=== PATIENT | male | born 1970 ===

== ENCOUNTER 2020-07-14 14:52 | Outpatient (REF) | payer OTHER, SELFPAY ==
--- NOTE | 2020-07-14 | MR_ITS ---
EXAMINATION: MR LUMBAR SPINE WITHOUT CONTRAST CLINICAL INFORMATION: Indeterminate and lumbar right-sided radiculopathy. Foot numbness. COMPARISON: Lumbar spine radiographs from 12/16/2017. TECHNIQUE: MRI of the lumbar spine was obtained using routine sequences without contrast. FINDINGS: Minimal degenerative retrolisthesis of L5 on S1. Otherwise, normal anatomic alignment. Mild to moderate degenerative disc disease from T11-L2 and L4-S1 with partial loss of disc height and desiccation. Mild mixed Modic type discogenic endplate changes, including minimal Modic type I discogenic edema at L1-L2, L2-L3, and L4-L5. No additional suspicious marrow edema. Small Schmorl's nodes at L1-L2, L3-L4, and L4-L5. Otherwise, the vertebral body heights are largely maintained. The conus medullaris terminates at the level of L1. The distal spinal cord is normal in appearance. No significant abnormalities of the paraspinal musculature. Limited evaluation of the intra-abdominal structures without significant abnormalities. The abdominal aorta is of normal contour and caliber. AXIAL SPINAL LEVELS: T10-T11: This level is not included on axial imaging. There appears to be mild right subarticular protrusion. No evidence of overt spinal canal stenosis. T11-T12: This level is not included on axial imaging. There appears to be mild right subarticular disc protrusion. No evidence of overt spinal canal stenosis. T12-L1: Mild diffuse disc bulge. There is moderate right and mild left facet joint arthropathy. There is no neural foraminal stenosis. There is no spinal canal stenosis. L1-L2: Mild diffuse disc bulge. There is moderate bilateral facet joint arthropathy. There is no neural foraminal stenosis. There is no spinal canal stenosis. L2-L3: Mild diffuse disc bulge. There is moderate bilateral facet joint arthropathy. There is mild right and no left neural foraminal stenosis. There is mild narrowing of the right lateral recess with no overt spinal canal stenosis centrally. L3-L4: Moderate diffuse disc bulge with superimposed left greater than right foraminal/extraforaminal disc protrusion. There is moderate bilateral facet joint arthropathy. There is moderate bilateral neural foraminal stenosis. The protruded disc material abuts the left greater than right exited L3 nerve roots. There is mild spinal canal stenosis. L4-L5: Moderate diffuse disc bulge with superimposed right foraminal protrusion. There is moderate left and mild right facet joint arthropathy. There is moderate right and mild left neural foraminal stenosis. There is narrowing of the right lateral recess with mild spinal canal stenosis centrally. L5-S1: Prominent central disc extrusion. There is moderate bilateral facet joint arthropathy. There is moderate to neural foraminal stenosis. There is stenosis of the right greater than left lateral recesses with moderate spinal canal stenosis centrally. MR/MR lumbar spine wo con IMPRESSION: 1. There is a prominent disc extrusion at L5-S1 that exerts mass effect on the right greater than left traversing S1 nerve roots. There is also moderate spinal canal stenosis centrally and moderate bilateral neural foraminal stenoses at this level. 2. Otherwise, moderate multilevel degenerative spinal arthropathy of the lumbar spine as described in detail above. There are mild spinal canal stenoses at L3-L4 and L4-L5. Moderate neural foraminal narrowings from L3-L5.
== END 2020-07-14 14:53 | disposition home or self-care (01) ==
LOC: HO.MRI 14:52
PROVIDERS: PCP Physician Assistant; Visit Provider Physician Assistant
DX: M54.16 Radiculopathy, lumbar region (principal)
CPT/HCPCS: 72148

== ENCOUNTER 2020-12-08 07:31 | Outpatient (REF) | payer OTHER, SELFPAY ==
[2020-12-08 08:27] LABS: MANUAL DIFF FLAG NO
[2020-12-08 08:32] LABS: Basophils Percent Auto 0.8 % (0-2); Eosinophils Absolute Auto 0.2 X10*3/uL (0.0-0.4); Eosinophils Percent Auto 2.9 % (0-4); Hematocrit 41.8 % (42-52); Hemoglobin 14.2 g/dl (14.0-18.0); Imm Gran Abs Auto 0.02 X10*3/uL (0.00-0.03); Imm Gran Pct Auto 0.4 % (0.0-0.4); Lymphocytes Absolute Auto 2.3 X10*3/uL (1.2-4.9); Lymphocytes Percent Auto 44.2 % (20-40); Mean Corpuscular Hemoglobin 29.3 pg (27.0-33.0); Mean Corpuscular Volume 86.2 fL (80-98); Mean Platelet Volume 9.3 fL (9.4-12.4); Monocytes Absolute Auto 0.5 X10*3/uL (0.1-1.2); Monocytes Percent Auto 9.1 % (2-11); Neutrophils Absolute Auto 2.2 X10*3/uL (2.0-8.3); Neutrophils Percent Auto 42.6 % (45-73); Platelet Count 331 X10*3/uL (160-400); Red Blood Count 4.85 X10*6/uL (4.60-5.80); Red Cell Distribution Width 12.4 % (11.0-16.0); White Blood Count 5.3 X10*3/uL (4.8-10.8)
[2020-12-08 08:59] LABS: Alanine Aminotransferase 41 U/L (0-40); Albumin Level 4.9 g/dL (3.5-5.0); Alkaline Phosphatase 93 U/L (39-117); Anion Gap 19 (12-20); Aspartate Amino Transferase 34 U/L (5-37); Bilirubin Total 0.6 mg/dL (0.0-1.0); Blood Urea Nitrogen 12 mg/dL (9-16); Calcium 9.9 mg/dL (8.4-10.2); Carbon Dioxide 23 mmol/L (22-29); Chloride 100 mmol/L (96-108); Cholesterol 195 mg/dL; Estimated Glomerular Filt Rate > 60; Glucose Fasting 130 mg/dL (60-99); HDL Cholesterol 40 mg/dL; LDL Cholesterol Calculated 102 mg/dl; Potassium 3.9 mmol/L (3.3-5.1); Sodium 138 mmol/L (135-145); Total Protein 7.8 g/dL (6.5-8.0); Triglycerides 269 mg/dL
[2020-12-08 09:24] LABS: Prostate Specific Antigen 1.05 ng/mL (<0.05-4.0); Thyroid Stimulating Hormone 1.63 uIU/mL (0.32-4.0)
[2020-12-08 14:24] LABS: Creatinine Urine 37.73 mg/dL
== END 2020-12-08 07:32 | disposition home or self-care (01) ==
LOC: HO.LAB 07:31
PROVIDERS: PCP Physician Assistant; Visit Provider Physician Assistant
DX: Z12.5 Encounter for screening for malignant neoplasm of prostate (principal); E11.9 Type 2 diabetes mellitus without complications; E78.5 Hyperlipidemia, unspecified; I10 Essential (primary) hypertension
CPT/HCPCS: 36415; 80053; 80061; 82043; 84153; 84443; 85025

== ENCOUNTER → 2021-03-28 14:15 | Outpatient (BNVA) | payer OTHER, SELFPAY | PROVIDERS: PCP Physician Assistant; Referring Provider Physician Assistant; Visit Provider Physician Assistant ==

== ENCOUNTER 2021-05-30 09:16 | Outpatient (REF) | payer OTHER, SELFPAY ==
--- NOTE | ~2021-05-30 | XR_ITS ---
EXAMINATION: XR CHEST CLINICAL INFORMATION: COVID 19. COMPARISON: None. TECHNIQUE: 2 views of the chest were obtained. FINDINGS: Minimal right middle lobe atelectasis versus early infiltrate. No additional airspace consolidation. No pleural effusion or pneumothorax. Unremarkable cardiomediastinal silhouette. No acute osseous abnormality. XR/XR chest 2V IMPRESSION: Minimal right middle lobe atelectasis versus early infiltrate.
== END 2021-05-30 09:17 | disposition home or self-care (01) ==
LOC: HO.LAB 09:16
PROVIDERS: PCP Physician Assistant; Visit Provider Physician Assistant
DX: U07.1 COVID-19 (principal)
CPT/HCPCS: 71046; U0003; U0005

== ENCOUNTER 2021-07-26 06:00 | Outpatient (REF) | payer OTHER, SELFPAY ==
[2021-07-26 07:38] LABS: Hematocrit 45.5 % (42.0-52.0); Hemoglobin 14.8 g/dl (14.0-18.0); Mean Corpuscular HGB Conc 32.5 g/dl (31.0-36.0); Mean Corpuscular Hemoglobin 28.6 pg (27.0-33.0); Mean Platelet Volume 9.6 fL (9.4-12.4); Platelet Count 379 X10*3/uL (160-400); Red Blood Count 5.17 X10*6/uL (4.60-5.80); Red Cell Distribution Width 13.1 % (11.0-16.0); White Blood Count 5.9 X10*3/uL (4.8-10.8)
[2021-07-26 08:41] LABS: TSH reflex Free T4 1.71 uIU/mL (0.32-4.0)
[2021-07-26 08:44] LABS: Alanine Aminotransferase 29 U/L (0-40); Albumin Level 4.7 g/dL (3.5-5.0); Alkaline Phosphatase 95 U/L (39-117); Anion Gap 16 (12-20); Aspartate Amino Transferase 27 U/L (5-37); Bilirubin Total 0.6 mg/dL (0.0-1.0); Blood Urea Nitrogen 20 mg/dL (9-16); Calcium 10.9 mg/dL (8.4-10.2); Carbon Dioxide 26 mmol/L (22-29); Chloride 100 mmol/L (96-108); Cholesterol 192 mg/dL; Estimated Glomerular Filt Rate > 60; Glucose Fasting 148 mg/dL (60-99); HDL Cholesterol 39 mg/dL; LDL Cholesterol Calculated 93 mg/dl; Potassium 4.4 mmol/L (3.3-5.1); Sodium 138 mmol/L (135-145); Total Protein 7.9 g/dL (6.5-8.0); Triglycerides 303 mg/dL
[2021-07-26 08:51] LABS: Estimated Average Glucose 177 mg/dL; Hemoglobin A1c % 7.8 %
== END 2021-07-26 06:01 | disposition home or self-care (01) ==
LOC: HO.LAB 06:00
PROVIDERS: PCP Physician Assistant; Visit Provider Physician Assistant
DX: E11.9 Type 2 diabetes mellitus without complications (principal); I10 Essential (primary) hypertension
CPT/HCPCS: 36415; 80053; 80061; 83036; 84443; 85027

== ENCOUNTER 2022-04-04 09:45 | Emergency (ER) | payer OTHER, SELFPAY ==
--- NOTE | ~2022-04-04 | CT_ITS ---
EXAMINATION: CT ABDOMEN AND PELVIS WITHOUT CONTRAST CLINICAL INFORMATION: Sudden onset right lower quadrant pain. Evaluate for appendicitis. COMPARISON: Radiographs of lumbosacral spine from 12/16/2017. TECHNIQUE: Multidetector volumetric imaging was performed from the superior aspect of the liver through the pubic symphysis. Sagittal and coronal reformatted images were obtained on the technologist's workstation. This CT examination was performed using dose optimization techniques as appropriate, variously including the following: *Automated exposure control *Adjustment of mA and/or kV according to patient size (this includes techniques or standardized protocols for targeted exams where dose is matched to indication/reason for exam; i.e. extremities or head) *Use of iterative reconstruction technique DLP: 639 mGy-cm FINDINGS: LUNG BASES: Normal. No pulmonary consolidation or pleural effusion at either lung base. LIVER: Liver has a few small simple cysts. 0.3 cm calcification in the lateral right hepatic lobe. No suspicious liver lesion. GALLBLADDER AND BILIARY TREE: Gallbladder is without radiopaque stones, wall thickening or pericholecystic fluid. No dilated bile ducts. PANCREAS: Normal. No edema, pancreatic ductal dilatation or mass. SPLEEN: Normal. ADRENAL GLANDS: Normal. KIDNEYS AND URETERS: Kidneys have normal size, cortical thickness and attenuation. Mild right perinephric and proximal periureteral edema, and mild hydronephrosis, are caused by a 0.3 cm stone at the L4-L5 level of the mid ureter. Otherwise, kidneys and ureters are unremarkable. BLADDER: Suboptimally evaluated due to lack of distention. No bladder calculi. BOWEL AND PERITONEUM: Stomach is unremarkable. No dilated loops of bowel. The appendix is normal. Diverticula of descending colon without diverticulitis. No overt bowel wall thickening or mesenteric fat stranding. No ascites or pneumoperitoneum. ABDOMINAL WALL: Unremarkable. VASCULATURE: Unremarkable. LYMPH NODES: No pathologic sized lymph nodes in the abdomen or pelvis. No inguinal lymphadenopathy. PELVIC VISCERA: Unremarkable. SKELETAL: Mild multilevel discovertebral degenerative change of the spine. Bone island of right subcapital femoral neck and left pubic bone. Mild osteoarthrosis of the hips and sacroiliac joints. There appears to be minimal trabecular thickening and sclerosis of the posterior right iliac bone projecting lateral to the right sacroiliac joint which is intact. This could represent chronic mild osteitis or perhaps mild stress-related change. This asymmetric sclerosis adjacent to the sacroiliac joint is also visible on radiographs from 12/16/2017. No evidence of an aggressive appearing bone lesion. No follow-up necessary. CT/CT abdomen pelvis wo con IMPRESSION: * Acute mild right hydronephrosis and perinephric edema are caused by a 0.3 cm stone of the mid ureter. * Diverticulosis of the descending colon without diverticulitis.
[2022-04-04 09:47] VITALS: BP 178/107; PULSE 97; RESP 18; TEMP 37.1; O2SAT 98; BMI 33.4
--- NOTE | 2022-04-04 09:51 | ECG_ITS ---
Test Reason : WEAK Blood Pressure : / mmHG Vent. Rate : 071 BPM Atrial Rate : 071 BPM P-R Int : 126 ms QRS Dur : 090 ms QT Int : 406 ms P-R-T Axes : 053 006 034 degrees QTc Int : 441 ms Sinus rhythm with Premature ventricular complexes or Fusion complexes Otherwise normal ECG No previous ECGs available Referred By: Mary Ann Woo Electronically Signed By:Patrick Gaspar
[2022-04-04 13:46] LABS: Alanine Aminotransferase 21 U/L (0-40); Albumin Level 4.5 g/dL (3.5-5.0); Alkaline Phosphatase 99 U/L (39-117); Anion Gap 15 (12-20); Aspartate Amino Transferase 27 U/L (5-37); Bilirubin Direct 0.2 mg/dL (0.0-0.5); Bilirubin Total 0.6 mg/dL (0.0-1.0); Blood Urea Nitrogen 17 mg/dL (9-16); Calcium 9.6 mg/dL (8.4-10.2); Carbon Dioxide 24 mmol/L (22-29); Chloride 103 mmol/L (96-108); Creatinine Clr Calc Pharmacy 81.3; Estimated Glomerular Filt Rate > 60; Glucose Random 177 mg/dL (60-115); Lipase 15 U/L (8-78); Magnesium 2.1 mg/dL (1.6-2.6); Potassium 4.7 mmol/L (3.3-5.1); Sodium 137 mmol/L (135-145); Total Protein 7.6 g/dL (6.5-8.0)
--- NOTE | 2022-04-04 16:01 | ED_ITS ---
HPI - Abdominal Pain General Chief Complaint: Abdominal Pain Stated Complaint: right side pain Time Seen by Provider: 04/04/22 09:49 Source: patient Mode of arrival: ambulatory Limitations: no limitations History of Present Illness HPI narrative: 52-year-old male presents with sudden onset of right sharp lower quadrant pain. While patient was experiences pain he did have some dizziness and diaphoresis. Patient does not have a prior cardiac history, does have diabetes, hypertension, hyperlipidemia, and a family history of coronary artery disease. He has not experienced pain like this in the past, and does not report any significant changed pain with position or exertion. He does not report chest pain or pressure, palpitations, shortness of breath, pain on inspiration, abdominal distention, dysuria, hematuria, edema, nausea, vomiting, diarrhea, fevers or chills. MD elicited complaint: abdominal pain and flank pain Pertinent past history: none Onset (ago): day(s) Pain Consistency: colicky Location: RLQ and R flank Severity: moderate Pain scale (0-10): 6 Quality: stabbing and aching Radiation: none Migration to: no migration Exacerbating factors: nothing Relieving factors: nothing Associated symptoms: other (Dizziness and diaphoresis) Related Data Home Medications Medication Instructions Recorded Confirmed loratadine 10 mg tablet 10 mg PO DAILY 01/25/21 07/31/21 Previous Rx's Medication Instructions Recorded albuterol sulfate 90 mcg/actuation 1 inh inhalation QID 30 days #8.5 01/25/21 aerosol inhaler (ProAir HFA) grams atorvastatin 80 mg tablet 80 mg PO DAILY 90 days #90 tabs 01/25/21 lisinopril 20 2 tab PO DAILY 90 days #180 tabs 01/25/21 mg-hydrochlorothiazide 12.5 mg tablet mupirocin 2 % topical ointment 1 appl topical BID 10 days #22 01/25/21 grams trazodone 100 mg tablet 50 mg PO BEDTIME 90 days #45 tabs 01/25/21 glyburide 2.5 mg tablet 2.5 mg PO DAILY 60 days #60 tabs 03/21/21 bisacodyl 5 mg tablet,delayed 10 mg PO ONCE colonoscopy prep 1 03/28/21 release (Dulcolax (bisacodyl)) day #2 tabs polyethylene glycol 3350 17 238 g PO ONCE 1 day #238 grams 03/28/21 gram/dose oral powder (Miralax) canagliflozin 150 mg-metformin 1 tab PO BID 90 days #180 tabs 07/31/21 1,000 mg tablet (Invokamet) cyclobenzaprine 10 mg tablet 10 mg PO BEDTIME 20 days #20 tabs 07/31/21 dulaglutide 0.75 mg/0.5 mL 0.75 mg (0.5 mL) subcut QWEEK 4 07/31/21 subcutaneous pen injector weeks #2 mL (Trulicity) fluticasone propionate 50 1 spray intranasal BID 30 days #16 07/31/21 mcg/actuation nasal grams spray,suspension oxybutynin chloride 10 mg 10 mg PO DAILY 30 days #30 tabs 07/31/21 tablet,extended release 24 hr tadalafil 20 mg tablet 20 mg PO DAILY 5 days #5 tabs 07/31/21 tamsulosin 0.4 mg capsule (Flomax) 0.4 mg PO DAILY 21 days #21 caps 04/04/22 Allergies Allergy/AdvReac Type Severity Reaction Status Date / Time No Known Allergies Allergy Verified 07/31/21 08:29 Review of Systems Review of Systems Constitutional: No Fever, No Chills ENT/Mouth: No Ear Pain, No Hoarseness, No sore throat Eyes: No Eye Pain, No Swelling, No Redness, No Foreign Body Cardiovascular: No Chest Pain, No SOB Respiratory: No Cough, No Dyspnea Gastrointestinal: No Nausea, No Vomiting, No Diarrhea, positive abdominal Pain, positive right flank pain Genitourinary: No Dysuria, No Hematuria Musculoskeletal: No joint pain, No Myalgias, No Joint Swelling Skin: No Skin lacerations, No rash Neuro: No Weakness, No Numbness, No Paresthesias, No Loss of Consciousness, positive Dizziness, No Headache Psych: No Anxiety/Panic, No Depression Heme/Lymph: no easy bruising, no Lymphadenopathy Endocrine: No Polyuria, No Polydipsia Yes all other systems are reviewed and are negative FOR[facility]LY [facility] Past Medical History Attestation statement: The following information was validated with the patient. 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 Oriented X3. No acute distress. Eyes: Pupils equal, round and reactive to light. ENT: Pharynx normal. Neck: Normal inspection. Neck supple. CVS: Normal heart rate and rhythm. Pulses normal. Respiratory: No respiratory distress. Breath sounds normal. Abdomen: Soft and nontender. Right CVA tenderness noted. Skin: Skin warm and dry. Normal skin color. Normal skin turgor. Extremities: No lower extremity edema. Gait well-balanced and well coordinated Neuro: No motor deficit. No sensory deficit. Cranial nerves 2-12 intact. Course Course Course Narrative: 52-year-old male presents for a sudden onset of sharp right lower quadrant abdominal pain accompanied with diaphoresis and dizziness. No prior history of kidney stones, AAA history, or ACS. Labs drawn while patient was in the emergency department waiting room. CBC is unremarkable, chemistries show and mildly elevated BUN of 17, glucose of 177 patient is a diabetic, no symptoms of hyperglycemia or DKA, 16:01 review of labs and CT indicates right-sided hydronephrosis with perinephric edema, kidney stone. Will order urinalysis to rule out pyelo. 16:37 urinalysis positive for heme, no nitrites leukocyte esterase white blood cells or bacteria noted. Plan of care is to treat for kidney stone and have patient follow-up with Urology next week. 18:59 2nd troponin 21.9, no acute findings. Trops could be elevated secondary to diabetes. Low likelihood of ACS at this time. Patient verbalized understanding of and agrees plan of care discharge home. Verbalized understanding of signs symptoms indicating need for emergent intervention. MDM - Abdominal Pain Differential Diagnosis Differential diagnosis: Likely abdominal pain, acute appendicitis, calculus of kidney, diverticulitis, mesenteric ischemia and small bowel obstruction Medical Records Attestation: I reviewed the patient's medical records. Lab Data Attestation: I reviewed the patient's lab results. Result diagrams: 04/04/22 16:15 04/04/22 13:09 Labs: Lab Results 04/04/22 04/04/22 04/04/22 Range/Units 13:09 16:04 16:15 WBC 6.7 (4.8-10.8) X10*3/uL RBC 4.89 (4.60-5.80) X10*6/uL Hgb 14.0 (14.0-18.0) g/dl Hct 41.8 L (42.0-52.0) % MCV 85.5 (80.0-98.0) fL MCH 28.6 (27.0-33.0) pg MCHC 33.5 (31.0-36.0) g/dl RDW 12.7 (11.0-16.0) % Plt Count 305 (160-400) X10*3/uL MPV 8.9 L (9.4-12.4) fL Immature Gran % (Auto) 0.3 (0.0-0.4) % Neut % (Auto) 59.0 (45-73) % Lymph % (Auto) 30.4 (20-40) % [place] % (Auto) 9.1 (2-11) % Eos % (Auto) 0.6 (0-4) % Baso % (Auto) 0.6 (0-2) % Lymph # (Auto) 2.0 (1.2-4.9) X10*3/uL [place] # (Auto) 0.6 (0.1-1.2) X10*3/uL Eos # (Auto) 0.0 (0.0-0.4) X10*3/uL Baso # (Auto) 0.0 (0.0-0.2) X10*3/uL Abs Immat Gran (auto) 0.02 (0.00-0.03) X10*3/uL Absolute Neuts (auto) 4.0 (2.0-8.3) x10*3/uL Absolute Nucleated RBC 0.000 (0.0-0.012) X10*3/uL Nucleated RBC % (auto) 0.0 (0.0-0.2) /100WBC Sodium 137 (135-145) mmol/L Potassium 4.7 (3.3-5.1) mmol/L Chloride 103 (96-108) mmol/L Carbon Dioxide 24 (22-29) mmol/L Anion Gap 15 (12-20) BUN 17 H (9-16) mg/dL Creatinine 1.23 (0.5-1.4) mg/dL Estim Creat Clear Calc 81.3 Estimated GFR > 60 Random Glucose 177 H (60-115) mg/dL Calcium 9.6 D (8.4-10.2) mg/dL Magnesium 2.1 (1.6-2.6) mg/dL Total Bilirubin 0.6 (0.0-1.0) mg/dL Direct Bilirubin 0.2 (0.0-0.5) mg/dL AST 27 (5-37) U/L ALT 21 (0-40) U/L Alkaline Phosphatase 99 (39-117) U/L Troponin I High Sens (<3.5-35.0) ng/L Total Protein 7.6 (6.5-8.0) g/dL Albumin 4.5 (3.5-5.0) g/dL Lipase 15 (8-78) U/L Urine Color YELLOW Urine Appearance CLEAR Urine pH 5.5 (5.0-8.0) Ur Specific [place] >= 1.030 H (1.005-1.025) Urine Protein 2+ H (NEG-TRACE) MG/DL Urine Glucose (UA) NEG (NEG) MG/DL Urine Ketones NEG (NEG) MG/DL Urine Blood 3+ H (NEG) Urine Nitrite NEG (NEG) Ur Leukocyte Esterase NEG (NEG) Urine RBC 30-49 H (0) /HPF Urine WBC 0 (0-4) /HPF Ur Squamous Epith Cells 1+ /LPF Urine Bacteria NONE /LPF 04/04/22 04/04/22 Range/Units 16:46 18:24 WBC (4.8-10.8) X10*3/uL RBC (4.60-5.80) X10*6/uL Hgb (14.0-18.0) g/dl Hct (42.0-52.0) % MCV (80.0-98.0) fL MCH (27.0-33.0) pg MCHC (31.0-36.0) g/dl RDW (11.0-16.0) % Plt Count (160-400) X10*3/uL MPV (9.4-12.4) fL Immature Gran % (Auto) (0.0-0.4) % Neut % (Auto) (45-73) % Lymph % (Auto) (20-40) % [place] % (Auto) (2-11) % Eos % (Auto) (0-4) % Baso % (Auto) (0-2) % Lymph # (Auto) (1.2-4.9) X10*3/uL [place] # (Auto) (0.1-1.2) X10*3/uL Eos # (Auto) (0.0-0.4) X10*3/uL Baso # (Auto) (0.0-0.2) X10*3/uL Abs Immat Gran (auto) (0.00-0.03) X10*3/uL Absolute Neuts (auto) (2.0-8.3) x10*3/uL Absolute Nucleated RBC (0.0-0.012) X10*3/uL Nucleated RBC % (auto) (0.0-0.2) /100WBC Sodium (135-145) mmol/L Potassium (3.3-5.1) mmol/L Chloride (96-108) mmol/L Carbon Dioxide (22-29) mmol/L Anion Gap (12-20) BUN (9-16) mg/dL Creatinine (0.5-1.4) mg/dL Estim Creat Clear Calc Estimated GFR Random Glucose (60-115) mg/dL Calcium (8.4-10.2) mg/dL Magnesium (1.6-2.6) mg/dL Total Bilirubin (0.0-1.0) mg/dL Direct Bilirubin (0.0-0.5) mg/dL AST (5-37) U/L ALT (0-40) U/L Alkaline Phosphatase (39-117) U/L Troponin I High Sens 20.0 21.9 (<3.5-35.0) ng/L Total Protein (6.5-8.0) g/dL Albumin (3.5-5.0) g/dL Lipase (8-78) U/L Urine Color Urine Appearance Urine pH (5.0-8.0) Ur Specific [place] (1.005-1.025) Urine Protein (NEG-TRACE) MG/DL Urine Glucose (UA) (NEG) MG/DL Urine Ketones (NEG) MG/DL Urine Blood (NEG) Urine Nitrite (NEG) Ur Leukocyte Esterase (NEG) Urine RBC (0) /HPF Urine WBC (0-4) /HPF Ur Squamous Epith Cells /LPF Urine Bacteria /LPF Imaging Data CT scan - abdomen: Attestation: I personally reviewed and interpreted this imaging study as follows: Radiologist's impression: FINDINGS: LUNG BASES: Normal. No pulmonary consolidation or pleural effusion at either lung base.? LIVER: Liver has a few small simple cysts. 0.3 cm calcification in the lateral right hepatic lobe. No suspicious liver lesion. GALLBLADDER AND BILIARY TREE: Gallbladder is without radiopaque stones, wall thickening or pericholecystic fluid.? No dilated bile ducts. PANCREAS: Normal. No edema, pancreatic ductal dilatation or mass.? SPLEEN: Normal.? ADRENAL GLANDS: Normal.? KIDNEYS AND URETERS: Kidneys have normal size, cortical thickness and attenuation. Mild right perinephric and proximal periureteral edema, and mild hydronephrosis, are caused by a 0.3 cm stone at the L4-L5 level of the mid ureter. Otherwise, kidneys and ureters are unremarkable. BLADDER:? Suboptimally evaluated due to lack of distention. No bladder calculi. BOWEL AND PERITONEUM: Stomach is unremarkable. No dilated loops of bowel. The appendix is normal. Diverticula of descending colon without diverticulitis. No overt bowel wall thickening or mesenteric fat stranding. No ascites or pneumoperitoneum. ABDOMINAL WALL: Unremarkable.? VASCULATURE: Unremarkable. LYMPH NODES: No pathologic sized lymph nodes in the abdomen or pelvis. No inguinal lymphadenopathy. PELVIC VISCERA: Unremarkable. SKELETAL: Mild multilevel discovertebral degenerative change of the spine. Bone island of right subcapital femoral neck and left pubic bone. Mild osteoarthrosis of the hips and sacroiliac joints. There appears to be minimal trabecular thickening and sclerosis of the posterior right iliac bone projecting lateral to the right sacroiliac joint which is intact. This could represent chronic mild osteitis or perhaps mild stress-related change. This asymmetric sclerosis adjacent to the sacroiliac joint is also visible on radiographs from 12/16/2017. No evidence of an aggressive appearing bone lesion. No follow-up necessary. CT/CT abdomen pelvis wo con IMPRESSION: *? Acute mild right hydronephrosis and perinephric edema are caused by a 0.3 cm stone of the mid ureter. *? Diverticulosis of the descending colon without diverticulitis. ? ECG Data Attestation: I personally reviewed and interpreted this ECG as follows: ECG interpretation date: 04/04/22 ECG interpretation time: 16:09 Prior ECG tracings: not available for review Interpretation: Ventricular rate 71 beats per minute, GA 126, QRS 90, QTC 406, QTC 441, sinus rhythm with PVCs or fusion complexes. No indication of ST elevation or d epression. Scores Heart Score History: -1- moderately suspicious ECG: -0- normal Age: -1- >45 - <65 Risk factory: -1- 1 or 2 risk factors Troponin: -0- < or = normal limit Score: 3 Risk: 1.7% Discharge Plan Discharge Clinical Impression: Kidney stone, Hydronephrosis Patient Disposition: Home, Self-Care Instructions: Kidney Stones (ED), Hydronephrosis (ED) Additional Instructions: You were evaluated for right lower quadrant abdominal pain. CT scan of abdomen pelvis indicates a right-sided kidney stone with hydronephrosis. Please follow- up with Urology in the next 2 weeks. I referred you to Dr. Deleon. Please call and request an appointment. Take Flomax 0.4 mg daily. Drink plenty of fluids. Take Motrin 600 mg every 6 hours as needed for pain management. Please follow-up with primary care physician within the next 2 weeks for evaluation. Thank you for choosing this emergency department for evaluation. Please follow-up with primary care physician as needed. Return to the emergency department for any new, concerning, or worsening symptoms. Prescriptions: New tamsulosin [Flomax] 0.4 mg capsule 0.4 mg PO DAILY 21 Days Qty: 21 0RF No Action glyburide 2.5 mg tablet 2.5 mg PO DAILY 60 Days Qty: 60 3RF Hold Instructions: Doctor's Order loratadine 10 mg tablet 10 mg PO DAILY mupirocin 2 % ointment 1 appl topical BID 10 Days Qty: 22 0RF atorvastatin 80 mg tablet 80 mg PO DAILY 90 Days Qty: 90 1RF lisinopril-hydrochlorothiazide 20-12.5 mg tablet 2 tab PO DAILY 90 Days Qty: 180 1RF trazodone 100 mg tablet 50 mg PO BEDTIME 90 Days Qty: 45 2RF albuterol sulfate [ProAir HFA] 90 mcg/actuation HFA aerosol inhaler 1 inh inhalation QID 30 Days Qty: 8.5 3RF Invokamet 150-1,000 mg tablet 1 tab PO BID 90 Days Qty: 180 1RF fluticasone propionate 50 mcg/actuation spray,suspension 1 spray intranasal BID 30 Days Qty: 16 3RF oxybutynin chloride 10 mg tablet extended release 24hr 10 mg PO DAILY 30 Days Qty: 30 3RF tadalafil 20 mg tablet 20 mg PO DAILY 5 Days Qty: 5 0RF Trulicity 0.75 mg/0.5 mL pen injector 0.75 mg subcut QWEEK 28 Days Qty: 2 3RF cyclobenzaprine 10 mg tablet 10 mg PO BEDTIME 20 Days Qty: 20 0RF bisacodyl [Dulcolax (bisacodyl)] 5 mg tablet,delayed release (DR/EC) 10 mg PO ONCE 1 Days Qty: 2 0RF Rx Instructions: Take 2 tablets by mouth at 12:00pm the day before your procedure. polyethylene glycol 3350 [Miralax] 17 gram/dose powder 238 g PO ONCE 1 Days Qty: 238 0RF Rx Instructions: Take as directed by mouth the day before your procedure. Referrals: Enrique Deleon MD [Physician] - (kidney stone) Jerome Zambrano PA-C [Primary Care Provider] - (kidney stone) Stand Alone Forms: Work/School Release Interventions: ED Discharge Assessment Last Done: 04/04/22 19:38 Discharge Date/Time: 04/04/22 19:39
[2022-04-04 16:02] VITALS: BP 147/93; PULSE 75; RESP 16; O2SAT 100
[2022-04-04 16:21] LABS: MANUAL DIFF FLAG NO
[2022-04-04 16:23] LABS: Basophils Percent Auto 0.6 % (0-2); Eosinophils Percent Auto 0.6 % (0-4); Hematocrit 41.8 % (42.0-52.0); Imm Gran Abs Auto 0.02 X10*3/uL (0.00-0.03); Imm Gran Pct Auto 0.3 % (0.0-0.4); Lymphocytes Percent Auto 30.4 % (20-40); Mean Corpuscular HGB Conc 33.5 g/dl (31.0-36.0); Mean Corpuscular Hemoglobin 28.6 pg (27.0-33.0); Mean Corpuscular Volume 85.5 fL (80.0-98.0); Mean Platelet Volume 8.9 fL (9.4-12.4); Monocytes Absolute Auto 0.6 X10*3/uL (0.1-1.2); Monocytes Percent Auto 9.1 % (2-11); Platelet Count 305 X10*3/uL (160-400); Red Blood Count 4.89 X10*6/uL (4.60-5.80); Red Cell Distribution Width 12.7 % (11.0-16.0); White Blood Count 6.7 X10*3/uL (4.8-10.8)
[2022-04-04 16:25] LABS: Appearance Urine CLEAR; Color Urine YELLOW; Glucose Urine UA NEG (NEG); Leukocyte Esterase Urine NEG (NEG); Nitrite Urine NEG (NEG); PH 5.5 (5.0-8.0); Specific Gravity - Urine >= 1.030 (1.005-1.025); UACC Culture Trigger NO; Urine Blood 3+ (NEG); Urine Ketones NEG (NEG); Urine Protein 2+ MG/DL (NEG-TRACE)
[2022-04-04 16:34] LABS: RBC Urine 30-49 /HPF (0); Squamous Epithelial Cell Urine 1+ /LPF; WBC Urine 0 /HPF (0-4)
[2022-04-04] MEDS: Ketorolac Tromethamine 30 MG/ML VIAL IVPUSH (16:41)
[2022-04-04] MEDS: Tamsulosin HCL 0.4 MG CAPSULE PO (16:42)
[2022-04-04 18:53] LABS: Troponin-I High Sensitivity 21.9 ng/L (<3.5-35.0)
== END 2022-04-04 19:39 | disposition home or self-care (01) ==
PROVIDERS: Nurse Practitioner Family; Physician Assistant; Emergency Provider Internal Medicine; PCP Physician Assistant
DX: N13.2 Hydronephrosis with renal and ureteral calculous obstruction (principal); K57.30 Diverticulosis of large intestine without perforation or abscess without bleeding; R10.31 Right lower quadrant pain; I10 Essential (primary) hypertension; E11.9 Type 2 diabetes mellitus without complications; E78.5 Hyperlipidemia, unspecified; E66.9 Obesity, unspecified; Z68.33 Body mass index [BMI] 33.0-33.9, adult; Z79.02 Long term (current) use of antithrombotics/antiplatelets; Z79.899 Other long term (current) drug therapy; Z79.4 Long term (current) use of insulin
CPT/HCPCS: 36415; 74176; 80048; 80076; 81001; 83690; 83735; 84484; 85025; 93005; 96374; 99284; J1885

== ENCOUNTER 2023-02-19 05:59 | Outpatient (REF) | payer OTHER, SELFPAY ==
[2023-02-19 07:06] LABS: Hematocrit 41.6 % (42.0-52.0); Mean Corpuscular HGB Conc 33.7 g/dl (31.0-36.0); Mean Corpuscular Hemoglobin 29.2 pg (27.0-33.0); Mean Corpuscular Volume 86.7 fL (80.0-98.0); Mean Platelet Volume 9.8 fL (9.4-12.4); Platelet Count 318 X10*3/uL (160-400); Red Cell Distribution Width 12.6 % (11.0-16.0); White Blood Count 6.2 X10*3/uL (4.8-10.8)
[2023-02-19 07:30] LABS: Alanine Aminotransferase 31 U/L (0-40); Albumin Level 4.1 g/dL (3.5-5.0); Alkaline Phosphatase 94 U/L (39-117); Anion Gap 13 (12-20); Aspartate Amino Transferase 22 U/L (5-37); Bilirubin Total 0.8 mg/dL (0.0-1.0); Blood Urea Nitrogen 10 mg/dL (9-16); Calcium 9.7 mg/dL (8.4-10.2); Carbon Dioxide 30 mmol/L (22-29); Chloride 102 mmol/L (96-108); Cholesterol 233 mg/dL; Estimated Glomerular Filt Rate > 60; Glucose Fasting 211 mg/dL (60-99); HDL Cholesterol 47 mg/dL; LDL Cholesterol Calculated 134 mg/dl; Potassium 4.6 mmol/L (3.3-5.1); Sodium 140 mmol/L (135-145); Total Protein 6.7 g/dL (6.5-8.0); Triglycerides 262 mg/dL
[2023-02-19 07:49] LABS: Prostate Specific Antigen Scr 1.34 ng/mL (<0.05-4.0); TSH reflex Free T4 2.43 uIU/mL (0.32-4.0)
[2023-02-19 08:04] LABS: Creatinine Urine 191.05 mg/dL; Microalbum/Creatinine Ratio Ur 214.6 ug/mg cr
== END 2023-02-19 06:00 | disposition home or self-care (01) ==
LOC: HO.LAB 05:59
PROVIDERS: PCP Physician Assistant; Visit Provider Physician Assistant
DX: Z12.5 Encounter for screening for malignant neoplasm of prostate (principal); E11.9 Type 2 diabetes mellitus without complications; Z82.49 Family history of ischemic heart disease and other diseases of the circulatory system
CPT/HCPCS: 36415; 80053; 80061; 82043; 84153; 84443; 85027

== ENCOUNTER 2023-05-21 14:40 | Outpatient (AMB) | payer OTHER, SELFPAY ==
--- NOTE | 2023-05-21 14:45 | MHC.OFFVIS ---
Intake Vital Signs 05/21/23 14:48 Height 5 ft 8 in Weight 200 lb BMI 30.4 BP 115/55 L Blood Pressure Location Lt brachial Position Sitting Pulse 80 Intake Visit Reasons: pre colonoscopy screening Intake Note: Patient follow up for 1st pre colonoscopy screening. Patient denies any GI issues. Fine Patcher Required: No Accompanied by: Self / Same As Patient Allergies Seasonal Allergies Allergy (Severe, Verified 05/21/23 14:45) Cough Medication List - Last Reconciled 05/21/23 by Emperatriz Barlow PA-C albuterol sulfate 90 mcg/actuation (ProAir HFA) 1 inh inhalation QID 30 days atorvastatin 80 mg PO DAILY 90 days clotrimazole 1% 1 appl topical BID 30 days dapagliflozin propanediol (Farxiga) 10 mg PO DAILY 90 days dulaglutide (Trulicity) 0.75 mg (0.5 mL) subcut QWEEK 4 weeks fluticasone propionate 50 mcg/actuation 1 spray intranasal BID 30 days lisinopril-hydrochlorothiazide 20-12.5 mg 2 tabs PO DAILY 90 days loratadine 10 mg PO DAILY 90 days tamsulosin (Flomax) 0.4 mg PO DAILY 90 days trazodone 50 mg (1/2 x 100 mg) PO BEDTIME 90 days HPI HPI Comments History of Present Illness Details A 53-year-old male referred for screening colonoscopy- he had canceled during covid Has a good appetite, he has a normal bowel pattern. No known family history of colon cancer He does have asthma, well controlled-typically bothers him when seasonal allergies No cardiac issues He works full-time- No nausea, vomiting, hematemesis, hematochezia fever or chills PFSH Medical History Foot callus Nephrolithiasis COVID-19 Neuropathy of right lower extremity Hyperlipidemia HTN (hypertension) Proteinuria Low testosterone Asthma, currently dormant Surgical History History of abdominal surgery Family History Mother Alzheimer disease Parkinson disease Mental health disorder Father High blood pressure Diabetes Social History Housing: House Alcohol intake: current Alcohol intake frequency: holidays/special occasions only Alcohol type: beer Patient Tobacco Use Status: Never used Tobacco e-Cigarette/Vaping Use: Never Used Second Hand Smoke Exposure: No service: No Current occupational status: employed Current occupation: [employer] Current occupational exposures/hazards: No Cognitive needs: No Hearing needs: No Vision needs: No Review of Systems Const All systems reviewed & are unremarkable except as noted in HPI and below Card Denies chest pain and Denies dyspnea Resp Denies dyspnea GI Denies abdominal pain, Denies hematochezia, Denies change in bowel habits, Denies nausea and Denies vomiting Physical Exam Vital Signs: Last Vital Signs Pulse 80 05/21/23 14:48 BP 115/55 L 05/21/23 14:48 BMI result Body Mass Index 30.4 Const General: cooperative, healthy appearing, comfortable and no acute distress Orientation/consciousness: patient oriented x3 Limitations: no limitations Eyes Sclerae: sclerae normal Resp Effort & Inspection: normal respiratory effort and able to speak in complete sentences Auscultation: clear to auscultation bilaterally, no rales, no rhonchi and no wheezes Cardio Rate: regular rate Rhythm: regular rhythm Heart sounds: S1 normal heart sound present and S2 normal heart sound present GI Palpation (GI): Soft to palpation and nontender Auscultation: normal bowel sounds Skin General skin exam: no rashes or lesions noted Neuro General: patient oriented x3 Extrem General: Yes full ROM Psych Appearance: grossly normal and well kempt Mental Status: mental status grossly normal Speech and movement: Normal speech and movement present Affect: normal affect Attitude: cooperative Thought process: Normal thought process present Thought content: Normal thought content present Insight: Good insight present (Psych) Judgement: Good judgement present (Psych) Assessment & Plan Assessment & Plan (1) Colon cancer screening: Comment: index screening colonoscopy Code(s): Z12.11 - Encounter for screening for malignant neoplasm of colon Plan Screening colonoscopy MiraLax Gatorade split prep, anesthesia consult Pulmonary Orders: Orders Colonoscopy - GI Use Only 05/21/23 Z12.11 - Encounter for screening for malignant neoplasm of colon Medications: New polyethylene glycol 3350 (Miralax) Take as directed by mouth the day before your procedure. 238 grams PO ONCE 1 day 238 grams 0RF laxative effect bisacodyl (Dulcolax (bisacodyl)) Take 4 tablets by mouth at 12:00pm the day before your procedure. 20 mg (4 x 5 mg) PO ONCE 1 day 4 tabs 0RF colonoscopy prep Z12.11 - Encounter for screening for malignant neoplasm of colon Patient Instructions: A 53-year-old Gent referred for screening colonoscopy Index screening colonoscopy-reviewed medication-no diabetes medication morning of procedure Discussed procedure, rare risk, need for escorted as well as MiraLax Gatorade split prep - Encouraged to call questions or concerns We appreciate the opportunity assist in the care this huy Jang Coding Level of Care Code New Pt Level 3 (87057) Diagnoses Colon cancer screening Z12.11 Time Spent (min) 25
[2023-05-21 14:48] VITALS: BP 115/55; PULSE 80; BMI 30.4
== END 2023-05-21 16:09 | disposition home or self-care (01) ==
PROVIDERS: PCP Physician Assistant; Visit Provider Physician Assistant
DX: Z01.818 Encounter for other preprocedural examination (principal); Z12.11 Encounter for screening for malignant neoplasm of colon
CPT/HCPCS: 99212

== ENCOUNTER → 2023-05-21 14:40 | Outpatient (BNVA) | payer OTHER, SELFPAY | PROVIDERS: PCP Physician Assistant; Visit Provider Physician Assistant ==

== ENCOUNTER 2023-05-27 05:58 | Outpatient (REF) | payer OTHER, SELFPAY ==
[2023-05-27 07:24] LABS: Alanine Aminotransferase 23 U/L (0-40); Albumin Level 4.4 g/dL (3.5-5.0); Alkaline Phosphatase 82 U/L (39-117); Anion Gap 15 (12-20); Aspartate Amino Transferase 25 U/L (5-37); Bilirubin Total 0.8 mg/dL (0.0-1.0); Blood Urea Nitrogen 14 mg/dL (9-16); Calcium 10.2 mg/dL (8.4-10.2); Carbon Dioxide 24 mmol/L (22-29); Chloride 100 mmol/L (96-108); Cholesterol 160 mg/dL (<200); Estimated Glomerular Filt Rate > 60; Glucose Fasting 157 mg/dL (60-99); HDL Cholesterol 42 mg/dL (>40); LDL Cholesterol Calculated 101 mg/dL (<100); Potassium 3.9 mmol/L (3.3-5.1); Sodium 135 mmol/L (135-145); Total Protein 7.4 g/dL (6.5-8.0); Triglycerides 85 mg/dL (<150)
== END 2023-05-27 05:59 | disposition home or self-care (01) ==
LOC: HO.LAB 05:58
PROVIDERS: PCP Physician Assistant; Visit Provider Physician Assistant
DX: E11.9 Type 2 diabetes mellitus without complications (principal); Z82.49 Family history of ischemic heart disease and other diseases of the circulatory system
CPT/HCPCS: 36415; 80053; 80061

== ENCOUNTER 2023-05-28 07:51 | Outpatient (AMB) | payer OTHER, SELFPAY ==
[2023-05-28 07:54] VITALS: BP 110/64; BMI 30.4
--- NOTE | 2023-05-28 07:54 | A.OFFPC_ITS ---
Vital Signs 05/28/23 07:54 Height 5 ft 8 in Weight 200 lb BMI 30.4 BP 110/64 Blood Pressure Location Lt brachial Position Sitting Intake Visit Reasons: Follow-up diabetes Intake Note: Patient here for a follow up diabetes [employer] Photographs Required: No Accompanied by: Self / Same As Patient Allergies Seasonal Allergies Allergy (Severe, Verified 05/28/23 08:11) Cough Medication List - Last Reconciled 05/28/23 by Jerome Zambrano PA-C albuterol sulfate 90 mcg/actuation (ProAir HFA) 1 inh inhalation QID 30 days atorvastatin 80 mg PO DAILY 90 days bisacodyl (Dulcolax (bisacodyl)) 20 mg (4 x 5 mg) PO ONCE 1 day clotrimazole 1% 1 appl topical BID 30 days dapagliflozin propanediol (Farxiga) 10 mg PO DAILY 90 days dulaglutide (Trulicity) 0.75 mg (0.5 mL) subcut QWEEK 4 weeks fluticasone propionate 50 mcg/actuation 1 spray intranasal BID 30 days lisinopril-hydrochlorothiazide 20-12.5 mg 2 tabs PO DAILY 90 days loratadine 10 mg PO DAILY 90 days polyethylene glycol 3350 (Miralax) 238 grams PO ONCE 1 day tamsulosin (Flomax) 0.4 mg PO DAILY 90 days trazodone 50 mg (1/2 x 100 mg) PO BEDTIME 90 days Tobacco use date assessed: 02/20/23 Dental Screening Dental Screen Date: 05/28/23 Did you have a dental visit in the last 12 months?: No Did you have a dental problem in the last 6 months where you did not have access to dental care?: No Was dental information given to patient?: Patient has dentist HPI Follow-up diabetes HPI Details Patient is a 53 year-old male here today for f/u visit. Patient's past medical history significant for hypertension, type 2 diabetes, seasonal all ergies, family history of coronary artery disease, hyperlipidemia, obesity. .. Type 2 diabetes: Has been checking his blood sugars at home and ranges from 150 to 190. We have started Trulicity 0.75, has noted 20 lb weight loss since last office visit. HE REPORTS HE FEELS BETTER, SLEEPING BETTER AND HAS LESS LOWER BACK PAIN. A1c much improved today at 8.5 from 10.1. PLAN: Will try to optimize his diabetic treatment and increase his Trulicity to 1.5 mg .. Hyperlipidemia: Patient's most recent fasting lipid panel much improved since changing his lifestyle in on high potency statin. LDL slightly above goal at 101 and will continue to work on lifestyle modification. .. CHRONIC MEDICAL CONDITION--> Lumbar disc disease:? Patient reports he continues to have right lower extremity sciatica with numbness and tingling in his right foot., he now has noted that he has been having increased urination and inability to hold his urine. ? MRI in June of 2020 showing--> There is a prominent disc extrusion at L5-S1 that exerts mass effect on the right greater than left traversing S1 nerve roots. There is also moderate spinal canal stenosis centrally and moderate bilateral neural foraminal stenoses at this level. ? PFSH Medical History Foot callus Nephrolithiasis COVID-19 Neuropathy of right lower extremity Hyperlipidemia HTN (hypertension) Proteinuria Low testosterone Asthma, currently dormant Surgical History History of abdominal surgery Family History Mother Alzheimer disease Parkinson disease Mental health disorder Father High blood pressure Diabetes Social History Housing: House Alcohol intake: current Alcohol intake frequency: holidays/special occasions only Alcohol type: beer Patient Tobacco Use Status: Never used Tobacco e-Cigarette/Vaping Use: Never Used Second Hand Smoke Exposure: No service: No Current occupational status: employed 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 Linden Womack, Gabrielle Walker, Andrew Hernandez and colleagues, with an educational desmond from [employer] Review of Systems Const Denies headache(s) Eyes Denies loss of vision ENT Denies vertigo, Denies dizziness, Denies headache(s) and Denies sore throat Card Denies chest pain, Denies leg edema and Denies lightheadedness Resp Denies cough, Denies hemoptysis and Denies wheezing GI Denies abdominal pain, Denies melena, Denies constipation, Denies diarrhea and Denies vomiting Denies dysuria, Denies urinary frequency and Denies urinary urgency Musc Denies arthralgias, Denies joint swelling, Denies numbness and Denies tingling Neuro Denies Abnormal speech present, Denies behavioral changes, Denies vertigo, Denies dizziness, Denies headache(s), Denies loss of vision, Denies memory loss, Denies numbness and Denies tingling Psych Denies anxiety, Denies behavioral changes, Denies depression, Denies memory loss and Denies panic attacks Joaquín/Lymph Denies easy bleeding and Denies easy bruising Aller/Immun Denies wheezing Physical exam (Primary Care) Vital Signs: Last Vital Signs BP 110/64 05/28/23 07:54 BMI result Body Mass Index 30.4 Tobacco/Smoking Status: Tobacco use Status Tobacco use date assessed 02/20/23 05/28/23 07:57 Patient Tobacco Use Status Never used Tobacco 05/28/23 07:57 e-Cigarette/Vaping Use Never Used 05/28/23 07:57 Thrive Assessment: Date of Thrive Assessment Date Thrive assessed 02/20/23 05/28/23 07:57 Const General: healthy appearing, no acute distress, alert and awake Nutritional Appearance: well nourished Orientation/consciousness: oriented to person, oriented to place and oriented to time HENMT Ears: TM's normal bilaterally General nose exam: Normal nasal mucous membranes and turbinates present Eyes Conjunctivae: conjunctivae normal Sclerae: sclerae normal Pupils: Equal, round and reactive pupils present Neck Neck: Yes no lymphadenopathy and Yes no JVD Thyroid: Thyroid normal Carotids: no bruits Resp Effort & Inspection: normal respiratory effort and not tachypneic Auscultation: no crackles, no rales, no rhonchi and no wheezes Cardio Rate: regular rate Rhythm: regular rhythm Heart sounds: no murmurs and normal S1 and S2 GI Palpation (GI): Soft to palpation, nontender, no hepatomegaly and no splenomegaly Auscultation: normal bowel sounds Skin General skin exam: no rashes or lesions noted and dry skin Neuro General: oriented to person, oriented to place and oriented to time Cranial nerves: Yes Equal, round and reactive pupils present Speech: No Abnormal speech present Gait exam (Neuro): Normal gait present Motor exam (neuro): no tremor noted Extrem Right upper extremity: full ROM Left upper extremity: full ROM Right lower extremity: full ROM; no edema Left lower extremity: full ROM; no edema Psych Mental Status: mental status grossly normal Speech and movement: Normal speech and movement present Affect: normal affect Attitude: cooperative Thought process: Normal thought process present Results AMB Hemoglobin A1c AMB Hemoglobin A1c 8.5 % Last Edit by COLLETTE Glass on 05/28/23 08:0 7 Assessment and Plan Assessment & Plan (1) DMII (diabetes mellitus, type 2): Code(s): E11.9 - Type 2 diabetes mellitus without complications Qualifiers: Diabetes mellitus complication status: without complication Diabetes mellitus bed bug exterminator insulin use: without mcfp use Qualified Code(s): E11.9 - Type 2 diabetes mellitus without complications Plan: Patient blood sugars much better controlled with the use of once weekly injection Trulicity. Will increase his dose to 1.5 mg weekly as A1c still above 7. . Goal LDL to be below 100, goal A1c to be below 7.0 (2) Family history of early CAD: Code(s): Z82.49 - Family history of ischemic heart disease and other diseases of the circulatory system Plan: Patient does have history of coronary artery disease thus patient on high potency statin. Unfortunately total cholesterol still borderline LDL slightly above 100. He does report some dietary indiscretion and would like to work on lifestyle modifications to reduce his cholesterol further. Orders: Orders AMB Hemoglobin A1c Today E11.9 - Type 2 diabetes mellitus without complications Medications: New lancets (OneTouch Delica Plus Lancet) Test once a day as needed 100 ea 0RF E11.9 - Type 2 diabetes mellitus without complications dulaglutide (Trulicity) 1.5 mg (0.5 mL) subcut QWEEK 4 weeks 2 mL 3RF E11.9 - Type 2 diabetes mellitus without complications blood-glucose meter ([employer] Ultra2 Meter) Testing once a day as needed 1 ea 0RF E11.9 - Type 2 diabetes mellitus without complications blood sugar diagnostic (OneTouch Ultra Test strips) Testing once a day as needed 100 ea 3RF E11.9 - Type 2 diabetes mellitus without complications Discontinued dulaglutide (Trulicity) Discontinued Reason: Doctor's Order 0.75 mg (0.5 mL) subcut QWEEK 4 weeks 2 mL 1RF E11.9 - Type 2 diabetes mellitus without complications Coding Level of Care Code Est Pt Level 4 (12146) Diagnoses Type 2 diabetes mellitus without complication, without long-term current use of insulin E11.9 Diabetes mellitus complication status: without complication Diabetes mellitus bed bug exterminator insulin use: without bed bug exterminator use Family history of early CAD Z82.49
== END 2023-05-28 09:50 | disposition home or self-care (01) ==
PROVIDERS: PCP Physician Assistant; Visit Provider Physician Assistant
DX: E11.9 Type 2 diabetes mellitus without complications (principal); Z82.49 Family history of ischemic heart disease and other diseases of the circulatory system
CPT/HCPCS: 83036; 99214

== ENCOUNTER 2023-09-04 09:20 | Outpatient (AMB) | payer OTHER, SELFPAY ==
[2023-09-04 09:22] VITALS: BP 102/62; PULSE 82; RESP 17; BMI 30.3
--- NOTE | 2023-09-04 09:22 | MHC.PC.OV ---
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 Accompanied by: Self / Same As Patient Allergies Seasonal Allergies Allergy (Severe, Verified 09/04/23 09:42) Cough Medication List - Last Reconciled 09/04/23 by Jerome Zambrano PA-C albuterol sulfate 90 mcg/actuation (ProAir HFA) 1 inh inhalation QID 30 days atorvastatin 80 mg PO DAILY 90 days bisacodyl (Dulcolax (bisacodyl)) 20 mg (4 x 5 mg) PO ONCE 1 day blood sugar diagnostic ([employer] Ultra Test strips) Testing once a day as needed blood-glucose meter ([employer]Touch Ultra2 Meter) Testing once a day as needed clotrimazole 1% 1 appl topical BID 30 days dapagliflozin propanediol (Farxiga) 10 mg PO DAILY 90 days dulaglutide (Trulicity) 1.5 mg (0.5 mL) subcut QWEEK 4 weeks fluticasone propionate 50 mcg/actuation 1 spray intranasal BID 30 days lancets ([employer]Touch Delica Plus Lancet) Test once a day as needed lisinopril-hydrochlorothiazide 20-12.5 mg 2 tabs PO DAILY 90 days loratadine 10 mg PO DAILY 90 days polyethylene glycol 3350 (Miralax) 238 grams PO ONCE 1 day tamsulosin (Flomax) 0.4 mg PO DAILY 90 days trazodone 50 mg (1/2 x 100 mg) PO BEDTIME 90 days Tobacco use date assessed: 02/20/23 Dental Screening Dental Screen Date: 09/04/23 Did you have a dental visit in the last 12 months?: No Did you have a dental problem in the last 6 months where you did not have access to dental care?: No Was dental information given to patient?: No HPI 3 month f/u HPI Details Patient is a 53 year-old male here today for f/u visit. Patient's past medical history significant for hypertension, type 2 diabetes, seasonal allergies, family history of coronary artery disease, hyperlipidemia, obesity. .. Type 2 diabetes: Has been checking his blood sugars twice a day and reports improvement in his overall numbers. Now on Trulicity 1.5 mg weekly . HE REPORTS HE FEELS BETTER, SLEEPING BETTER AND HAS LESS LOWER BACK PAIN. A1c much improved at 6.6 from 8.5 Recently had eye exam to did not show any diabetic retinopathy PLAN: Will continue Trulicity 1.5 mg as he has significant improvement in his diabetes. .. Hyperlipidemia: Patient's most recent fasting lipid panel much improved since changing his lifestyle in on high potency statin. LDL slightly above goal at 101 and will continue to work on lifestyle modification. Vaccines: Patient needs tetanus, pneumonia and flu vaccine. He would like to hold off until after the holidays and getting the of vaccines [facility] Medical History (Updated 09/04/23 @ 09:49 by Jerome Zambrano PA-C) Hyperlipidemia Foot callus Nephrolithiasis COVID-19 Neuropathy of right lower extremity HTN (hypertension) Proteinuria Low testosterone Asthma, currently dormant Surgical History History of abdominal surgery Family History Mother Alzheimer disease Parkinson disease Mental health disorder Father High blood pressure Diabetes Social History Housing: House Alcohol intake: current Alcohol intake frequency: holidays/special occasions only Alcohol type: beer Patient Tobacco Use Status: Never used Tobacco e-Cigarette/Vaping Use: Never Used Second Hand Smoke Exposure: No service: No Current occupational status: employed Current occupation: [employer] Current occupational exposures/hazards: No Cognitive needs: No Hearing needs: No Vision needs: No Questionnaire Thrive Questionnaire Date Thrive assessed: 02/20/23 SHAMEKA-7 AMB Questionnaire SHAMEKA-7 Date SHAMEKA - 7 assessed: 02/20/23 Source: Developed by Drs. Linden Womack, Gabrielle Walker, Andrew Hernandez and colleagues, with an educational desmond from [employer]. Review of Systems Const Denies headache(s) Eyes Denies loss of vision ENT Denies vertigo, Denies dizziness, Denies headache(s) and Denies sore throat Card Denies chest pain, Denies leg edema and Denies lightheadedness Resp Denies cough, Denies hemoptysis and Denies wheezing GI Denies abdominal pain, Denies melena, Denies constipation, Denies diarrhea and Denies vomiting Denies dysuria, Denies urinary frequency and Denies urinary urgency Musc Denies arthralgias, Denies joint swelling, Denies numbness and Denies tingling Neuro Denies Abnormal speech present, Denies behavioral changes, Denies vertigo, Denies dizziness, Denies headache(s), Denies loss of vision, Denies memory loss, Denies numbness and Denies tingling Psych Denies anxiety, Denies behavioral changes, Denies depression, Denies memory loss and Denies panic attacks Joaquín/Lymph Denies easy bleeding and Denies easy bruising Aller/Immun Denies wheezing Physical exam (Primary Care) Vital Signs: Last Vital Signs Pulse 82 09/04/23 09:22 Resp 17 09/04/23 09:22 BP 102/62 09/04/23 09:22 BMI result Body Mass Index 30.3 BMI Assessment/Plan discussion: High Tobacco/Smoking Status: Tobacco use Status Tobacco use date assessed 02/20/23 09/04/23 09:23 Patient Tobacco Use Status Never used Tobacco 09/04/23 09:23 e-Cigarette/Vaping Use Never Used 09/04/23 09:23 Thrive Assessment: Date of Thrive Assessment Date Thrive assessed 02/20/23 09/04/23 09:23 Const Other: Obese General: healthy appearing, no acute distress, alert and awake Nutritional Appearance: well nourished Orientation/consciousness: oriented to person, oriented to place and oriented to time HENMT Ears: TM's normal bilaterally General nose exam: Normal nasal mucous membranes and turbinates present Eyes Conjunctivae: conjunctivae normal Sclerae: sclerae normal Pupils: Equal, round and reactive pupils present Neck Neck: Yes no lymphadenopathy and Yes no JVD Thyroid: Thyroid normal Carotids: no bruits Resp Effort & Inspection: normal respiratory effort and not tachypneic Auscultation: no crackles, no rales, no rhonchi and no wheezes Cardio Rate: regular rate Rhythm: regular rhythm Heart sounds: no murmurs and normal S1 and S2 GI Palpation (GI): Soft to palpation, nontender, no hepatomegaly and no splenomegaly Auscultation: normal bowel sounds Skin General skin exam: no rashes or lesions noted and dry skin Neuro General: oriented to person, oriented to place and oriented to time Cranial nerves: Yes Equal, round and reactive pupils present Speech: No Abnormal speech present Gait exam (Neuro): Normal gait present Motor exam (neuro): no tremor noted Extrem Right upper extremity: full ROM Left upper extremity: full ROM Right lower extremity: full ROM; no edema Left lower extremity: full ROM; no edema Psych Mental Status: mental status grossly normal Speech and movement: Normal speech and movement present Affect: normal affect Attitude: cooperative Thought process: Normal thought process present Results AMB Hemoglobin A1c AMB Hemoglobin A1c 6.6 % Last Edit by JOHANN Cash on 09/04/23 09:41 Results Reviewed Results Reviewed: Laboratory Last Values Hgb A1c (Clinic) 6.6 % (4.0-6.0) H 09/04/23 09:41 Assessment and Plan Assessment & Plan (1) DMII (diabetes mellitus, type 2): Code(s): E11.9 - Type 2 diabetes mellitus without complications Qualifiers: Diabetes mellitus exterminator helper termite insulin use: without exterminator helper termite use Diabetes mellitus complication status: without complication Qualified Code(s): E11.9 - Type 2 diabetes mellitus without complications Plan: Patient blood sugars much better controlled now on higher dose of Trulicity 1.5 mg. Today's A1c is 6.6 Will continue current dose of Trulicity and he will continue working on diabetic diet. Goal LDL to be below 100, goal A1c to be below 7.0 (2) Family history of early CAD: Code(s): Z82.49 - Family history of ischemic heart disease and other diseases of the circulatory system Plan: Patient does have history of coronary artery disease thus patient on high potency statin. Unfortunately total cholesterol still borderline LDL slightly above 100. He does report some dietary indiscretion and would like to work on lifestyle modifications to reduce his cholesterol further. (3) Obese: Code(s): E66.9 - Obesity, unspecified Qualifiers: Obesity type: due to excess calories Obesity classification: adult class 1 (BMI 30 - 34.9) Serious obesity comorbidity presence: with serious comorbidity Body mass index: BMI 33.0-33.9 Qualified Code(s): E66.09 - Other obesity due to excess calories; Z68.33 - Body mass index [BMI] 33.0-33.9, adult Plan: Patient does understand his BMI is slightly above 30, has lost weight on Trulicity. Will continue to try to be more physically active an Adapta better eating habits. (4) Hyperlipidemia: Code(s): E78.5 - Hyperlipidemia, unspecified Qualifiers: Hyperlipidemia type: mixed hyperlipidemia Qualified Code(s): E78.2 - Mixed hyperlipidemia Plan: Patient continues on statin therapy without any significant side effect. Goal LDL is to be below 100 Orders: Orders Lipid Panel Today E78.5 - Hyperlipidemia, unspecified, Z82.49 - Family history of ischemic heart disease and other diseases of the circulatory system AMB Hemoglobin A1c Today E11.9 - Type 2 diabetes mellitus without complications Microalbumin, Random (w Creat) Today E11.9 - Type 2 diabetes mellitus without complications Comprehensive [place]. Panel Fast Today E11.9 - Type 2 diabetes mellitus without complications Prostate Specific Antigen Scr Today Z12.5 - Encounter for screening for malignant neoplasm of prostate, Z82.49 - Family history of ischemic heart disease and other diseases of the circulatory system Coding Level of Care Code Est Pt Level 4 (39295) Diagnoses Type 2 diabetes mellitus without complication, without long-term current use of insulin E11.9 Diabetes mellitus penitentiary insulin use: without exterminator helper termite use Diabetes mellitus complication status: without complication Family history of early CAD Z82.49 Class 1 obesity due to excess calories with serious comorbidity and body mass index (BMI) of 33.0 to 33.9 in adult E66.09; Z68.33 Obesity type: due to excess calories Obesity classification: adult class 1 (BMI 30 - 34.9) Serious obesity comorbidity presence: with serious comorbidity Body mass index: BMI 33.0-33.9 Mixed hyperlipidemia E78.2 Hyperlipidemia type: mixed hyperlipidemia
== END 2023-09-04 10:00 | disposition home or self-care (01) ==
PROVIDERS: PCP Physician Assistant; Visit Provider Physician Assistant
DX: E11.9 Type 2 diabetes mellitus without complications (principal); Z82.49 Family history of ischemic heart disease and other diseases of the circulatory system; E66.09 Other obesity due to excess calories; Z68.33 Body mass index [BMI] 33.0-33.9, adult; E78.2 Mixed hyperlipidemia
CPT/HCPCS: 83036; 99214

== ENCOUNTER 2023-10-24 15:25 | Outpatient (AMB) | payer OTHER, SELFPAY ==
--- NOTE | 2023-10-24 15:38 | AM.OFFVISNUR ---
Intake Intake Visit Reasons: flu and pneumonia vaccine Allergies Seasonal Allergies Allergy (Severe, Verified 09/04/23 09:42) Cough Office Procedures Flu Questionnaire Does the patient have a severe egg allergy?: No Does the patient have severe life threatening allergies?: No Does the patient have a fever or illness today?: No Has the patient ever had Guillain-[place] Syndrome?: No Has the patient ever had any past reaction to a flu shot?: No Immunizations flu vacc [id number] 6mos up(PF) 60 mcg(15 mcgx4)/0.5 mL IM syringe Performing Provider: Jerome Zambrano PA-C Performing Location: [facility] [place] [facility] Administered by: COLLETTE Loya on 10/24/23 15:38 Dose Route Admin Location Dispensed Lot Number Expiration Date ND Sorter Operator 0.5 mL IM Left Deltoid 0.5 mL [id number] 03/14/24 00627-701-76 [employer] VIS Given Date VIS Provided VIS Publication Date 10/24/23 Single Vaccine 21 Eligibility Eligibility Date Funding Source Not VFC Eligible 10/24/23 Private pneumoc 20-noe conj-dip cr(PF) 0.5 mL IM syringe Performing Provider: Jerome Zambrano PA-C Performing Location: [facility] Administered by: COLLETTE Loya on 10/24/23 15:39 Dose Route Admin Location Dispensed Lot Number Expiration Date NDC Sorter Operator 0.5 mL IM Right Deltoid 0.5 mL [id number] 01/13/25 9076-1774-86 [employer] VIS Given Date VIS Provided VIS Publication Date 10/24/23 Single Vaccine 21 Eligibility Eligibility Date Funding Source Not VFC Eligible 10/24/23 Private Coding Assessment & Plan Assessment & Plan Orders: Orders Influenza [id number] Immunization Today Z23 - Encounter for immunization Pneumococcal 20 Immunization Today Z23 - Encounter for immunization
== END 2023-10-24 16:01 | disposition home or self-care (01) ==
PROVIDERS: PCP Physician Assistant; Visit Provider Physician Assistant
DX: Z23 Encounter for immunization (principal)
CPT/HCPCS: 90471; 90472; 90677; 90686

== ENCOUNTER 2024-01-05 05:56 | Outpatient (REF) | payer OTHER, SELFPAY ==
[2024-01-05 08:33] LABS: Alanine Aminotransferase 29 U/L (0-40); Albumin Level 4.2 g/dL (3.5-5.0); Alkaline Phosphatase 82 U/L (39-117); Anion Gap 11 (12-20); Aspartate Amino Transferase 21 U/L (5-37); Bilirubin Total 0.4 mg/dL (0.0-1.0); Blood Urea Nitrogen 19 mg/dL (9-16); Calcium 9.5 mg/dL (8.4-10.2); Carbon Dioxide 29 mmol/L (22-29); Chloride 103 mmol/L (96-108); Cholesterol 148 mg/dL (<200); Estimated Glomerular Filt Rate > 60; Glucose Fasting 151 mg/dL (60-99); HDL Cholesterol 45 mg/dL (>40); LDL Cholesterol Calculated 86 mg/dL (<100); Potassium 4.1 mmol/L (3.3-5.1); Sodium 139 mmol/L (135-145); Triglycerides 85 mg/dL (<150)
[2024-01-05 08:49] LABS: Creatinine Urine 82.92 mg/dL; Microalbum/Creatinine Ratio Ur 16.8 ug/mg cr (<30)
[2024-01-05 08:52] LABS: Prostate Specific Antigen Scr 1.48 ng/mL (<0.05-4.0)
== END 2024-01-05 05:57 | disposition home or self-care (01) ==
LOC: HO.LAB 05:56
PROVIDERS: PCP Physician Assistant; Visit Provider Physician Assistant
DX: Z12.5 Encounter for screening for malignant neoplasm of prostate (principal); E11.9 Type 2 diabetes mellitus without complications; E78.5 Hyperlipidemia, unspecified; Z82.49 Family history of ischemic heart disease and other diseases of the circulatory system
CPT/HCPCS: 36415; 80053; 80061; 82043; 82570; 84153

== ENCOUNTER 2024-01-06 09:30 | Outpatient (AMB) | payer OTHER, SELFPAY ==
--- NOTE | 2024-01-06 09:52 | A.OFFPC_ITS ---
Vital Signs 01/06/24 09:54 Height 5 ft 8 in Weight 204 lb 8 oz BMI 31.1 BP 116/68 Blood Pressure Location Lt brachial Position Sitting Pulse 67 Pulse Source Pulse Oximeter Pulse Oximetry (%) 99 Oxygen Delivery Method Room Air Intake Visit Reasons: f/u DMII [employer]al Required: No Accompanied by: Self / Same As Patient Allergies Seasonal Allergies Allergy (Severe, Verified 01/06/24 10:04) Cough Medication List - Last Reconciled 01/06/24 by Jerome Zambrano PA-C albuterol sulfate 90 mcg/actuation (ProAir HFA) 1 inh inhalation QID 30 days atorvastatin 80 mg PO DAILY 90 days bisacodyl (Dulcolax (bisacodyl)) 20 mg (4 x 5 mg) PO ONCE 1 day blood sugar diagnostic (Web[employer]rift[employer]uch Ultra Test strips) Testing once a day as needed blood-glucose meter (SourceNinjaTouch Ultra2 Meter) Testing once a day as needed clotrimazole 1% 1 appl topical BID 30 days dapagliflozin propanediol (Farxiga) 10 mg PO DAILY 90 days dulaglutide (Trulicity) 0.75 mg (0.5 mL) subcut QWEEK fluticasone propionate 50 mcg/actuation 1 spray intranasal BID 30 days lancets (SourceNinjaTouch Delica Plus Lancet) Test once a day as needed lisinopril-hydrochlorothiazide 20-12.5 mg 2 tabs PO DAILY 90 days loratadine 10 mg PO DAILY 90 days polyethylene glycol 3350 (Miralax) 238 grams PO ONCE 1 day tamsulosin (Flomax) 0.4 mg PO DAILY 90 days trazodone 50 mg (1/2 x 100 mg) PO BEDTIME 90 days Tobacco use date assessed: 01/06/24 Dental Screening Dental Screen Date: 01/06/24 Did you have a dental visit in the last 12 months?: Yes Did you have a dental problem in the last 6 months where you did not have access to dental care?: No Was dental information given to patient?: Patient has dentist HPI f/u DMII HPI Details Patient is a 53 year-old male here today for f/u visit. Patient's past medical history significant for hypertension, type 2 diabetes, seasonal allergies, family history of coronary artery disease, hyperlipidemia, obesity. .. Type 2 diabetes: Has been checking his blood sugars twice a day and reports improvement in his overall numbers. Does report recently noting higher blood sugars since being placed on 0.75 Trulicity due to pharmacy availability of the medication. A1c today at 6.4 from 6.6 Recently had eye exam to did not show any diabetic retinopathy His microalbuminuria has significantly improved. PLAN: Will increase his Trulicity dose to 3 mg weekly for better glycemic control. .. Hypertension: Blood pressure acceptable today in office. Denies any headaches, chest pain, shortness for breath. .. Hyperlipidemia: Patient's most recent fasting lipid panel much improved since changing his lifestyle in on high potency statin. LDL has improved now below 100. Laboratory Tests 02/19/23 02/20/23 05/28/23 06:02 08:12 07:59 Creatinine Fasting Glucose Hgb A1c (Clinic) 10.1 H 8.5 H Cholesterol LDL Cholesterol, C alc PSA Screen Urine Microalbumin 410.0 09/04/23 01/05/24 01/05/24 09:41 06:05 06:08 Creatinine 0.80 Fasting Glucose 151 H Hgb A1c (Clinic) 6.6 H Cholesterol 148 LDL Cholesterol, C alc 86 PSA Screen 1.48 Urine Microalbumin 14.0 [facility] Medical History (Updated 01/06/24 @ 10:26 by Jerome Zambrano PA-C) HTN (hypertension) Cervical myelopathy Hyperlipidemia Foot callus Nephrolithiasis COVID-19 Neuropathy of right lower extremity Proteinuria Low testosterone Asthma, currently dormant Surgical History History of abdominal surgery Family History Mother Alzheimer disease Parkinson disease Mental health disorder Father High blood pressure Diabetes Social History Housing: House Alcohol intake: current Alcohol intake frequency: holidays/special occasions only Alcohol type: beer Patient Tobacco Use Status: Never used Tobacco e-Cigarette/Vaping Use: Never Used Second Hand Smoke Exposure: No service: No Current occupational status: employed Current occupation: [employer] Current occupational exposures/hazards: No Cognitive needs: No Hearing needs: No Vision needs: No Questionnaire PHQ-9 Over the last 2 weeks, how often have you been bothered by any of the following problems? 1. Little interest or pleasure in doing things: not at all 2. Feeling down, depressed, or hopeless: not at all 3. Trouble falling or staying asleep, or sleeping too much: not at all 4. Feeling tired or having little energy: not at all 5. Poor appetite or overeating: not at all 6. Feeling bad about yourself - or that you are a failure or have let yourself or your family down: not at all 7. Trouble concentrating on things, such as reading the newspaper or watching television: not at all 8. Moving or speaking so slowly that other people could have noticed. Or the opposite - being so fidgety or restless that you have been moving around a lot more than usual: not at all 9. Thoughts that you would be better off or of hurting yourself in some way: not at all Total score: 0 Depression Screening Interpretation: Negative Depression Screening Done: Yes 99880 - PHQ-9 Billing: Yes Source: Developed by Drs. Linden Womack, Gabrielle Walker, Andrew Hernandez and colleagues, with an educational desmond from [employer]. Thrive Questionnaire Date Thrive assessed: 01/06/24 I am a: Patient What is your living situation today?: I have a steady place to live Within the past 12 months, did the food you bought not last and you didn't have the money to get more?: Never true Within the past 12 months, did you worry whether your food would run out before you got money to buy more?: Never true Do you have trouble paying for medicines?: No Do you have trouble getting transportation to medical appointments?: No Do you have trouble paying your heating and electricity bill?: No Do you have trouble taking care of your child, family member or friend?: No Do you have trouble with day-to-day activities such as bathing, preparing meals, shopping, managing finances, etc.?: No Are you currently unemployed and looking for a job?: No Are you interested in more education?: No Please select the resources that you would like help with: None Currently or been in a relationship where the following occur: no concerns reported THRIVE Score: 0 AUDIT C Alcohol Use Questionnaire (AUDIT-C) 1. How often do you have a drink containing alcohol?: Monthly or less 2. How many drinks containing alcohol do you have on a typical day when you are drinking?: 3 or 4 3. How often do you have six or more drinks on one occasion?: Never Total Score: 2 SHAMEKA-7 AMB Questionnaire SHAMEKA-7 Date SHAMEKA - 7 assessed: 01/06/24 Feeling nervous, anxious, or on edge: 0 = Not at all Not being able to stop or control worryin = Not at all Worrying too much about different things: 0 = Not at all Trouble relaxin = Not at all Being so restless that it is hard to sit still: 0 = Not at all Becoming easily annoyed or irritable: 0 = Not at all Feeling afraid as if something awful might happen: 0 = Not at all Total SHAMEKA-7 score (0-4 normal; 5-9 mild; 10-14 moderate; 15-21 severe): 0 Source: Developed by Drs. Linden Womack, Gabrielle Walker, Andrew Hernandez and colleagues, with an educational desmond from [employer]. SHAMEKA-7 Assessment Billing SHAMEKA-7 Assessment Tool: SHAMEKA-7 Assessment 13459 Review of Systems Const Denies headache(s) Eyes Denies loss of vision ENT Denies vertigo, Denies dizziness, Denies headache(s) and Denies sore throat Card Denies chest pain, Denies leg edema and Denies lightheadedness Resp Denies cough, Denies hemoptysis and Denies wheezing GI Denies abdominal pain, Denies melena, Denies constipation, Denies diarrhea and Denies vomiting Denies dysuria, Denies urinary frequency and Denies urinary urgency Musc Denies arthralgias, Denies joint swelling, Denies numbness and Denies tingling Neuro Denies Abnormal speech present, Denies behavioral changes, Denies vertigo, Denies dizziness, Denies headache(s), Denies loss of vision, Denies memory loss, Denies numbness and Denies tingling Psych Denies anxiety, Denies behavioral changes, Denies depression, Denies memory loss and Denies panic attacks Joaquín/Lymph Denies easy bleeding and Denies easy bruising Aller/Immun Denies wheezing Physical exam (Primary Care) BMI result Body Mass Index 31.1 Tobacco/Smoking Status: Tobacco use Status Tobacco use date assessed 02/20/23 01/06/24 09:52 Patient Tobacco Use Status Never used Tobacco 01/06/24 09:52 e-Cigarette/Vaping Use Never Used 01/06/24 09:52 Depression Screening Interpretation: Negative Thrive Assessment: Date of Thrive Assessment Date Thrive assessed 02/20/23 01/06/24 09:52 Currently or been in a relationship where the following occur: no concerns reported Const General: healthy appearing, no acute distress, alert and awake Nutritional Appearance: well nourished Orientation/consciousness: oriented to person, oriented to place and oriented to time HENMT Ears: TM's normal bilaterally General nose exam: Normal nasal mucous membranes and turbinates present Eyes Conjunctivae: conjunctivae normal Sclerae: sclerae normal Pupils: Equal, round and reactive pupils present Neck Neck: Yes no lymphadenopathy and Yes no JVD Thyroid: Thyroid normal Carotids: no bruits Resp Effort & Inspection: normal respiratory effort and not tachypneic Auscultation: no crackles, no rales, no rhonchi and no wheezes Cardio Rate: regular rate Rhythm: regular rhythm Heart sounds: no murmurs and normal S1 and S2 GI Palpation (GI): Soft to palpation, nontender, no hepatomegaly and no splenomegaly Auscultation: normal bowel sounds Skin General skin exam: no rashes or lesions noted and dry skin Neuro General: oriented to person, oriented to place and oriented to time Cranial nerves: Yes Equal, round and reactive pupils present Speech: No Abnormal speech present Gait exam (Neuro): Normal gait present Motor exam (neuro): no tremor noted Extrem Right upper extremity: full ROM Left upper extremity: full ROM Right lower extremity: full ROM; no edema Left lower extremity: full ROM; no edema Psych Mental Status: mental status grossly normal Speech and movement: Normal speech and movement present Affect: normal affect Attitude: cooperative Thought process: Normal thought process present Results AMB Hemoglobin A1c AMB Hemoglobin A1c 6.4 % Last Edit by JOHANN Cash on 01/06/24 10:05 Assessment and Plan Assessment & Plan (1) DMII (diabetes mellitus, type 2): Code(s): E11.9 - Type 2 diabetes mellitus without complications Qualifiers: Diabetes mellitus skilled nursing insulin use: without termite control servicer use Diabetes mellitus complication status: without complication Qualified Code(s): E11.9 - Type 2 diabetes mellitus without complications Plan: Patient blood sugars much better controlled. Today's A1c is 6.4. He had trouble getting Trulicity 1.5 mg due to availability of pharmacy. He would like to increase his Trulicity to 3 mg for better glucose control. Goal LDL to be below 100, goal A1c to be below 7.0 (2) Family history of early CAD: Code(s): Z82.49 - Family history of ischemic heart disease and other diseases of the circulatory system Plan: Patient does have history of coronary artery disease thus patient on high potency statin. Most recent LDL under excellent control under 100. (3) Obese: Code(s): E66.9 - Obesity, unspecified Qualifiers: Obesity type: due to excess calories Obesity classification: adult class 1 (BMI 30 - 34.9) Serious obesity comorbidity presence: with serious comorbidity Body mass index: BMI 33.0-33.9 Qualified Code(s): E66.09 - Other obesity due to excess calories; Z68.33 - Body mass index [BMI] 33.0-33.9, adult Plan: Patient does understand his BMI is slightly above 30, has lost weight on Trulicity. Will continue to try to be more physically active an Adapta better eating habits. (4) Hyperlipidemia: Code(s): E78.5 - Hyperlipidemia, unspecified Qualifiers: Hyperlipidemia type: mixed hyperlipidemia Qualified Code(s): E78.2 - Mixed hyperlipidemia Plan: Patient continues on statin therapy without any significant side effect. Goal LDL is to be below 100 (5) Erectile dysfunction: Code(s): N52.9 - Male erectile dysfunction, unspecified Qualifiers: Erectile dysfunction type: drug-induced Qualified Code(s): N52.2 - Drug-induced erectile dysfunction Plan: Continues with p.r.n. use of tadalafil. (6) HTN (hypertension): Code(s): I10 - Essential (primary) hypertension Qualifiers: Hypertension type: essential hypertension Qualified Code(s): I10 - Essential (primary) hypertension Plan: Patient's blood pressure acceptable today in office. Will continue his current dose of antihypertensive medication with goal blood pressure to remain below 140/90 Orders: Orders AMB Hemoglobin A1c Today E11.9 - Type 2 diabetes mellitus without complications Medications: New tadalafil 20 mg PO DAILY 5 days PRN 5 tabs 3RF sexual activity N52.2 - Drug- induced erectile dysfunction dulaglutide (Trulicity) 3 mg (0.5 mL) subcut QWEEK 4 weeks 2 mL 3RF E11.9 - Type 2 diabetes mellitus without complications Changed From lancets (OneTouch Delica Plus Lancet) Test once a day as needed 100 ea 0RF E11.9 - Type 2 diabetes mellitus without complications To lancets (OneTouch Delica Plus Lancet) testing Twice per day 200 ea 1RF E11.9 - Type 2 diabetes mellitus without complications Refilled tamsulosin (Flomax) 0.4 mg PO DAILY 90 days 90 caps 2RF N32.89 - Other specified disorders of bladder Discontinued dulaglutide (Trulicity) Discontinued Reason: Doctor's Order 0.75 mg (0.5 mL) subcut QWEEK 2 mL 3RF E11.9 - Type 2 diabetes mellitus without complications Patient Instructions: Goals: Maintain A1c below 7.0 Barriers: Pharmacy Availability of medication Coding Level of Care Code Est Pt Level 4 (59280) Diagnoses Type 2 diabetes mellitus without complication, without long-term current use of insulin E11.9 Diabetes mellitus skilled nursing insulin use: without skilled nursing use Diabetes mellitus complication status: without complication Family history of early CAD Z82.49 Class 1 obesity due to excess calories with serious comorbidity and body mass index (BMI) of 33.0 to 33.9 in adult E66.09; Z68.33 Obesity type: due to excess calories Obesity classification: adult class 1 (BMI 30 - 34.9) Serious obesity comorbidity presence: with serious comorbidity Body mass index: BMI 33.0-33.9 Mixed hyperlipidemia E78.2 Hyperlipidemia type: mixed hyperlipidemia Drug-induced erectile dysfunction N52.2 Erectile dysfunction type: drug-induced Essential hypertension I10 Hypertension type: essential hypertension Additional Codes SHAMEKA-7 Assessment Billing - SHAMEKA-7 Assessment Tool: SHAMEKA-7 Assessment 22488 ([id number])
[2024-01-06 09:54] VITALS: BP 116/68; PULSE 67; O2SAT 99; BMI 31.1
== END 2024-01-06 10:26 | disposition home or self-care (01) ==
PROVIDERS: PCP Physician Assistant; Visit Provider Physician Assistant
DX: E11.9 Type 2 diabetes mellitus without complications (principal); Z82.49 Family history of ischemic heart disease and other diseases of the circulatory system; E66.09 Other obesity due to excess calories; Z68.33 Body mass index [BMI] 33.0-33.9, adult; E78.2 Mixed hyperlipidemia; N52.2 Drug-induced erectile dysfunction; I10 Essential (primary) hypertension
CPT/HCPCS: 83036; 99214

== ENCOUNTER 2024-02-26 07:47 | Outpatient (AMB) | payer OTHER, SELFPAY ==
[2024-02-26 08:05] VITALS: BP 124/72; BMI 30.4
--- NOTE | 2024-02-26 08:05 | MHC.PC.OV ---
Vital Signs 02/26/24 08:05 Height 5 ft 8 in Weight 200 lb BMI 30.4 BP 124/72 Blood Pressure Location Lt brachial Position Sitting Intake Visit Reasons: Annual Exam - see comments Intake Note: Patient here for a physical exam Hospital Receptionist Required: No Accompanied by: Self / Same As Patient Allergies Seasonal Allergies Allergy (Severe, Verified 02/26/24 08:13) Cough Medication List - Last Reconciled 02/26/24 by Jerome Zambrano PA-C albuterol sulfate 90 mcg/actuation (ProAir HFA) 1 inh inhalation QID 30 days atorvastatin 80 mg PO DAILY 90 days bisacodyl (Dulcolax (bisacodyl)) 20 mg (4 x 5 mg) PO ONCE 1 day blood sugar diagnostic (tocarioTouch Ultra Test strips) Testing once a day as needed blood-glucose meter (tocarioTouch Ultra2 Meter) Testing once a day as needed clotrimazole 1% 1 appl topical BID 30 days dapagliflozin propanediol (Farxiga) 10 mg PO DAILY 90 days dulaglutide (Trulicity) 3 mg (0.5 mL) subcut QWEEK 4 weeks fluticasone propionate 50 mcg/actuation 1 spray intranasal BID 30 days lancets (OneTouch Delica Plus Lancet) testing Twice per day lisinopril-hydrochlorothiazide 20-12.5 mg 2 tabs PO DAILY 90 days loratadine 10 mg PO DAILY 90 days polyethylene glycol 3350 (Miralax) 238 grams PO ONCE 1 day tadalafil 20 mg PO DAILY PRN 5 days tamsulosin (Flomax) 0.4 mg PO DAILY 90 days trazodone 50 mg (1/2 x 100 mg) PO BEDTIME 90 days Tobacco use date assessed: 01/06/24 Dental Screening Dental Screen Date: 01/06/24 HPI Annual Exam - see comments HPI Details Patient is a 54-year-old male here today for an annual physical. Patient's past medical history significant for hypertension, type 2 diabetes, seasonal allergies, family history of coronary artery disease, hyperlipidemia, obesity. .. Type 2 diabetes: Has been checking his blood sugars twice a day and reports improvement in his overall numbers. Does report recently noting higher blood sugars since being placed on 0.75 Trulicity due to pharmacy availability of the medication. Most recent A1c is 6.4. Unfortunately continues to have difficulty getting Trulicity from the pharmacy. Will try an alternative GLP 1 .. Hypertension: Blood pressure acceptable today in office. Denies any headaches, chest pain, shortness for breath. .. Hyperlipidemia: Patient's most recent fasting lipid panel much improved since changing his lifestyle in on high potency statin. LDL has improved now below 100. Colon cancer screening: needs screening colonoscopy- seems to have been called multiple times to set up appointment with GI though has not been successful- HE PROMISES TO CALL IN NEAR FUTURE TO SET UP APPOINTMENT WITH GI : Vaccines: Up-to-date with pneumonia Considering shingrex. UTD with COVID, needs tetanus vaccine [facility] Medical History HTN (hypertension) Cervical myelopathy Hyperlipidemia Foot callus Nephrolithiasis COVID-19 Neuropathy of right lower extremity Proteinuria Low testosterone Asthma, currently dormant Surgical History History of abdominal surgery Family History Mother Alzheimer disease Parkinson disease Mental health disorder Father High blood pressure Diabetes Social History (Updated 02/26/24 @ 08:20 by Jerome Zambrano PA-C) Housing: House Alcohol intake: current Alcohol intake frequency: holidays/special occasions only Alcohol type: beer Patient Tobacco Use Status: Never used Tobacco e-Cigarette/Vaping Use: Never Used Second Hand Smoke Exposure: No service: No Current occupational status: employed 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 Linden Womack, Gabrielle Walker, Andrew Hernandez and colleagues, with an educational desmond from [employer]. Review of Systems Const Denies body aches, Denies chills, Denies excessive sweating, Denies fatigue, Denies fever(s) and Denies headache(s) Eyes Denies blurry vision ENT Denies dysphagia, Denies vertigo, Denies dizziness, Denies headache(s), Denies hearing loss and Denies tinnitus Card Denies chest pain, Denies chest pain with activity, Denies syncope, Denies irregular heart rhythm and Denies dyspnea Resp Denies chest congestion, Denies cough, Denies hemoptysis, Denies dyspnea and Denies wheezing GI Denies abdominal pain, Denies melena, Denies hematochezia, Denies coffee ground emesis, Denies dysphagia, Denies diarrhea, Denies nausea and Denies vomiting Denies difficulty urinating, Denies dysuria, Denies urinary frequency, Denies urinary hesitancy and Denies urinary urgency Musc Denies arthralgias, Denies limited range of motion, Denies muscle cramps and Denies muscle weakness Skin/Breast Denies rash and Denies skin ulcer Neuro Denies Abnormal speech present, Denies confusion, Denies vertigo, Denies dizziness, Denies syncope, Denies headache(s), Denies memory loss and Denies seizure-like activity Psych Denies anxiety, Denies confusion, Denies depression, Denies memory loss, Denies panic attacks and Denies paranoia Endo Denies excessive sweating, Denies fatigue, Denies flushing, Denies polydipsia and Denies polyuria Aller/Immun Denies wheezing Physical exam (Primary Care) Vital Signs: Last Vital Signs BP 124/72 02/26/24 08:05 BMI result Body Mass Index 30.4 Tobacco/Smoking Status: Tobacco use Status Tobacco use date assessed 01/06/24 02/26/24 08:05 Patient Tobacco Use Status Never used Tobacco 02/26/24 08:05 e-Cigarette/Vaping Use Never Used 02/26/24 08:05 Thrive Assessment: Date of Thrive Assessment Date Thrive assessed 01/06/24 02/26/24 08:05 Const General: cooperative, comfortable, no acute distress, alert and awake; No confusion Orientation/consciousness: oriented to person, oriented to place, patient oriented x3 and No confusion HENMT Head: Yes normocephalic Ears: external ears normal and TM's normal bilaterally Face and sinus: No sinus tenderness Mouth: Normal oral and palatal mucosa present and tongue normal Teeth and gingiva: dentition normal and gingiva normal Throat: Yes posterior oropharynx normal, Yes tonsils normal and Yes uvula midline Eyes Conjunctivae: conjunctivae normal Sclerae: sclerae normal Pupils: Equal, round and reactive pupils present EOM: EOMs intact bilaterally Direct Ophthalmoscopy: No no photophobia Neck Neck: Yes no lymphadenopathy, No tender and Yes no JVD Thyroid: Thyroid normal Carotids: no bruits Chest Chest palpation & inspection: no tenderness Resp Effort & Inspection: normal respiratory effort, no audible wheezes, not labored and no stridor Auscultation: no crackles, no rales, no rhonchi and no wheezes Cardio Jugular venous distension: no JVD Rate: regular rate, not bradycardic and not tachycardic Rhythm: regular rhythm Bruits: no carotid bruits Peripheral pulses: Peripheral pulses 2+ throughout GI Inspection: Yes normal to inspection, No abdominal wall ecchymosis and No visible herniation Palpation (GI): Soft to palpation, nontender, no guarding, not rigid and No hepatosplenomegaly present Auscultation: normoactive bowel sounds General: Yes no CVA tenderness Back/Spine/Pelvis Back: no CVA tenderness and No back tenderness Cervical Spine: cervical ROM normal Thoracic/Lumbar Spine: thoracic and lumbar spine normal to inspection, straight leg raise negative bilaterally, No thoraco-lumbar ROM limited and No lumbar spinal tenderness Skin Lesions: no lesions Rashes: no rashes Wounds: no wounds Neuro General: oriented to person, oriented to place, patient oriented x3, CN's II-XI intact bilaterally and No confusion Cranial nerves: Yes Equal, round and reactive pupils present and Yes Normal accommodation reflex present Cognition (Neuro): normal cognition Speech: No Abnormal speech present Gait exam (Neuro): Normal gait present Motor exam (neuro): 5/5 motor strength present throughout Extrem Right upper extremity: full ROM; no cyanosis Left upper extremity: full ROM; no cyanosis Right lower extremity: no edema Left lower extremity: no edema Psych Appearance: grossly normal Mental Status: mental status grossly normal Affect: normal affect Attitude: cooperative Thought process: Normal thought process present Assessment and Plan Assessment & Plan (1) Annual physical exam: Code(s): Z00.00 - Encounter for general adult medical examination without abnormal findings (2) DMII (diabetes mellitus, type 2): Code(s): E11.9 - Type 2 diabetes mellitus without complications Qualifiers: Diabetes mellitus emt intermediate insulin use: without [place] [facility] use Diabetes mellitus complication status: without complication Qualified Code(s): E11.9 - Type 2 diabetes mellitus without complications Plan: Patient blood sugars much better controlled. Most recent A1c is 6.4. He continues to have trouble getting Trulicity from the pharmacy. Will try alternative GLP 1 Goal LDL to be below 100, goal A1c to be below 7.0 (3) Family history of early CAD: Code(s): Z82.49 - Family history of ischemic heart disease and other diseases of the circulatory system Plan: Patient does have history of coronary artery disease thus patient on high potency statin. Most recent LDL under excellent control under 100. (4) Hyperlipidemia: Code(s): E78.5 - Hyperlipidemia, unspecified Qualifiers: Hyperlipidemia type: mixed hyperlipidemia Qualified Code(s): E78.2 - Mixed hyperlipidemia Plan: Patient continues on statin therapy without any significant side effect. Goal LDL is to be below 100 (5) HTN (hypertension): Code(s): I10 - Essential (primary) hypertension Qualifiers: Hypertension type: essential hypertension Qualified Code(s): I10 - Essential (primary) hypertension Plan: Patient's blood pressure acceptable today in office. Will continue his current dose of antihypertensive medication with goal blood pressure to remain below 140/90 (6) Colon cancer screening: Comment: index screening colonoscopy Code(s): Z12.11 - Encounter for screening for malignant neoplasm of colon Plan: HAS BEEN REFERRED TO GI ALREADY ANNAMARIE HICKEYS TO CALL GI OFFICE TO SCHEDULE COLONOSCOPY (7) Lumbar disc herniation with radiculopathy: Code(s): M51.16 - Intervertebral disc disorders with radiculopathy, lumbar region Plan: He reports recently having a lower back pain flare-up. Does have a history of L5-S1 disc herniation. Has been using ibuprofen in his gotten better. Orders: Orders Comprehensive [place]. Panel Fast Today I10 - Essential (primary) hypertension Complete Blood Count no Diff Today I10 - Essential (primary) hypertension Hemoglobin A1c Today E11.9 - Type 2 diabetes mellitus without complications Lipid Panel Today E78.2 - Mixed hyperlipidemia Medications: New tirzepatide (Mounjaro) 5 mg (0.5 mL) subcut QWEEK 4 weeks 2 mL 1RF E11.9 - Type 2 diabetes mellitus without complications Changed From blood sugar diagnostic (OneTouch Ultra Test strips) Testing once a day as needed 100 ea 3RF E11.9 - Type 2 diabetes mellitus without complications To blood sugar diagnostic (OneTouch Ultra Test strips) Testing Twice per day/ PRN 200 ea 3RF E11.9 - Type 2 diabetes mellitus without complications On Hold dulaglutide (Trulicity) Hold Comment: Doctor's Order 3 mg (0.5 mL) subcut QWEEK 4 weeks 2 mL 3RF E11.9 - Type 2 diabetes mellitus without complications Patient Instructions: Goal: A1c to remain below 7.0, blood pressure to remain below 140/90 Barrier: Adherence to physical activity and healthy eating habits Coding Level of Care Code Est Pt Prev Care 40-64y(28547) Diagnoses Annual physical exam Z00.00 Type 2 diabetes mellitus without complication, without long-term current use of insulin E11.9 Diabetes mellitus [facility] [facility] insulin use: without emt intermediate use Diabetes mellitus complication status: without complication Family history of early CAD Z82.49 Mixed hyperlipidemia E78.2 Hyperlipidemia type: mixed hyperlipidemia Essential hypertension I10 Hypertension type: essential hypertension Colon cancer screening Z12.11 Lumbar disc herniation with radiculopathy M51.16
== END 2024-02-26 08:44 | disposition home or self-care (01) ==
PROVIDERS: PCP Physician Assistant; Visit Provider Physician Assistant
DX: Z00.00 Encounter for general adult medical examination without abnormal findings (principal); E11.9 Type 2 diabetes mellitus without complications; Z82.49 Family history of ischemic heart disease and other diseases of the circulatory system; E78.2 Mixed hyperlipidemia; I10 Essential (primary) hypertension; Z12.11 Encounter for screening for malignant neoplasm of colon; M51.16 Intervertebral disc disorders with radiculopathy, lumbar region
CPT/HCPCS: 99396

== ENCOUNTER 2024-04-13 06:03 | Outpatient (REF) | payer OTHER, SELFPAY ==
[2024-04-13 07:25] LABS: Estimated Average Glucose 137 mg/dL; Hematocrit 37.8 % (42.0-52.0); Hemoglobin 12.9 g/dl (14.0-18.0); Hemoglobin A1C 152.5426 umol/L; Hemoglobin A1c % 6.4 % (<6.0); Mean Corpuscular HGB Conc 34.1 g/dl (31.0-36.0); Mean Corpuscular Hemoglobin 29.9 pg (27.0-33.0); Mean Corpuscular Volume 87.5 fL (80.0-98.0); Platelet Count 304 X10*3/uL (160-400); Red Blood Count 4.32 X10*6/uL (4.60-5.80); Red Cell Distribution Width 12.9 % (11.0-16.0); White Blood Count 5.9 X10*3/uL (4.8-10.8)
[2024-04-13 08:01] LABS: Alanine Aminotransferase 29 U/L (0-40); Albumin Level 4.4 g/dL (3.5-5.0); Alkaline Phosphatase 84 U/L (39-117); Anion Gap 13 (12-20); Aspartate Amino Transferase 27 U/L (5-37); Bilirubin Total 0.4 mg/dL (0.0-1.0); Blood Urea Nitrogen 10 mg/dL (9-16); Calcium 10.3 mg/dL (8.4-10.2); Carbon Dioxide 27 mmol/L (22-29); Chloride 100 mmol/L (96-108); Cholesterol 139 mg/dL (<200); Estimated Glomerular Filt Rate > 60; Glucose Fasting 155 mg/dL (60-99); HDL Cholesterol 49 mg/dL (>40); LDL Cholesterol Calculated 52 mg/dL (<100); Potassium 3.5 mmol/L (3.3-5.1); Sodium 136 mmol/L (135-145); Total Protein 7.2 g/dL (6.5-8.0); Triglycerides 193 mg/dL (<150)
== END 2024-04-13 06:04 | disposition home or self-care (01) ==
LOC: HO.LAB 06:03
PROVIDERS: PCP Physician Assistant; Visit Provider Physician Assistant
DX: I10 Essential (primary) hypertension (principal); E11.9 Type 2 diabetes mellitus without complications; E78.2 Mixed hyperlipidemia
CPT/HCPCS: 36415; 80053; 80061; 83036; 85027

== ENCOUNTER 2024-04-14 07:59 | Outpatient (AMB) | payer OTHER, SELFPAY ==
[2024-04-14 08:33] VITALS: BP 98/62; PULSE 73; O2SAT 98
--- NOTE | 2024-04-14 08:33 | MHC.PC.OV ---
Vital Signs 04/14/24 08:33 Height 5 ft 8 in Weight 197 lb 0.4 oz BMI 30.0 BP 98/62 Blood Pressure Location Lt brachial Position Sitting Pulse 73 Pulse Source Pulse Oximeter Pulse Oximetry (%) 98 Oxygen Delivery Method Room Air Intake Visit Reasons: f/u DMII Hr Specialist Required: No Allergies Seasonal Allergies Allergy (Severe, Verified 04/14/24 08:44) Cough Medication List - Last Reconciled 04/14/24 by Jerome Zambrano PA-C albuterol sulfate 90 mcg/actuation (ProAir HFA) 1 inh inhalation QID 30 days atorvastatin 80 mg PO DAILY 90 days bisacodyl (Dulcolax (bisacodyl)) 20 mg (4 x 5 mg) PO ONCE 1 day blood sugar diagnostic (Vatoruch Ultra Test strips) Testing Twice per day/ PRN blood-glucose meter (Accel DiagnosticsTouch Ultra2 Meter) Testing once a day as needed clotrimazole 1% 1 appl topical BID 30 days dapagliflozin propanediol (Farxiga) 10 mg PO DAILY 90 days dulaglutide (Trulicity) mg subcut dulaglutide (Trulicity) 3 mg (0.5 mL) subcut QWEEK 4 weeks fluticasone propionate 50 mcg/actuation 1 spray intranasal BID 30 days lancets (Accel DiagnosticsTouch Delica Plus Lancet) testing Twice per day lisinopril-hydrochlorothiazide 20-12.5 mg 2 tabs PO DAILY 90 days loratadine 10 mg PO DAILY 90 days polyethylene glycol 3350 (Miralax) 238 grams PO ONCE 1 day tadalafil 20 mg PO DAILY PRN 5 days tamsulosin (Flomax) 0.4 mg PO DAILY 90 days trazodone 50 mg (1/2 x 100 mg) PO BEDTIME 90 days Tobacco use date assessed: 01/06/24 Dental Screening Dental Screen Date: 01/06/24 HPI f/u DMII HPI Details Patient is a 54-year-old male here today fora f/u visit Patient's past medical history significant for hypertension, type 2 diabetes, seasonal allergies, family history of coronary artery disease, hyperlipidemia, obesity. .. Type 2 diabetes: Has been checking his blood sugars twice a day and reports improvement in his overall numbers. Has lost weight since last office visit. Has been able to restart Trulicity 1.5 mg to which he is getting in an end fill [place] pharmacy. Most recent A1c is 6.4 .. Hypertension: Blood pressure on the low side today . Denies any headaches, presyncopal episodes or dizziness chest pain, shortness for breath. .. Hyperlipidemia: Patient's most recent fasting lipid panel much improved since changing his lifestyle in on high potency statin. LDL has improved now below 100. .. Lumbar disc disease: Does report having some lumbar spine pain recently from a small injury. Does report some urinary urgency and some frequency. Was on oxybutynin in the past with good effect on reducing his bladder symptoms. Will restart oxybutynin Laboratory Tests 02/19/23 02/19/23 01/05/24 06:02 06:08 06:05 RBC 4.80 Hgb Creatinine Fasting Glucose Hgb A1c (Clinic) Hemoglobin A1c % Triglycerides LDL Cholesterol, C alc Urine Microalbumin 410.0 14.0 01/05/24 01/06/24 04/13/24 06:08 09:53 06:14 RBC 4.32 L Hgb 12.9 L Creatinine 0.91 Fasting Glucose 151 H 155 H Hgb A1c (Clinic) 6.4 H Hemoglobin A1c % 6.4 H Triglycerides 193 H LDL Cholesterol, C alc 52 Urine Microalbumin PFSH Medical History HTN (hypertension) Cervical myelopathy Hyperlipidemia Foot callus Nephrolithiasis COVID-19 Neuropathy of right lower extremity Proteinuria Low testosterone Asthma, currently dormant Surgical History History of abdominal surgery Family History Mother Alzheimer disease Parkinson disease Mental health disorder Father High blood pressure Diabetes Social History Housing: House Alcohol intake: current Alcohol intake frequency: holidays/special occasions only Alcohol type: beer Patient Tobacco Use Status: Never used Tobacco e-Cigarette/Vaping Use: Never Used Second Hand Smoke Exposure: No service: No Current occupational status: employed 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 How often do you have a drink containing alcohol?: Monthly or less 2. How many drinks containing alcohol do you have on a typical day when you are drinking?: 3 or 4 3. How often do you have six or more drinks on one occasion?: Never Total Score: 2 SHAMEKA-7 AMB Questionnaire SHAMEKA-7 Date SHAMEKA - 7 assessed: 01/06/24 Source: Developed by Drs. Linden Womack, Gabrielle Walker, Andrew Hernandez and colleagues, with an educational desmond from [employer]. Review of Systems Const Denies headache(s) Eyes Denies loss of vision ENT Denies vertigo, Denies dizziness, Denies headache(s) and Denies sore throat Card Denies chest pain, Denies leg edema and Denies lightheadedness Resp Denies cough, Denies hemoptysis and Denies wheezing GI Denies abdominal pain, Denies melena, Denies constipation, Denies diarrhea and Denies vomiting Denies dysuria, Denies urinary frequency and Denies urinary urgency Musc Denies arthralgias, Denies joint swelling, Denies numbness and Denies tingling Neuro Denies Abnormal speech present, Denies behavioral changes, Denies vertigo, Denies dizziness, Denies headache(s), Denies loss of vision, Denies memory loss, Denies numbness and Denies tingling Psych Denies anxiety, Denies behavioral changes, Denies depression, Denies memory loss and Denies panic attacks Joaquín/Lymph Denies easy bleeding and Denies easy bruising Aller/Immun Denies wheezing Physical exam (Primary Care) Vital Signs: Last Vital Signs Pulse 73 04/14/24 08:33 BP 98/62 04/14/24 08:33 Pulse Ox 98 04/14/24 08:33 Oxygen Delivery Method Room Air 04/14/24 08:33 BMI result Body Mass Index 30.0 Tobacco/Smoking Status: Tobacco use Status Tobacco use date assessed 01/06/24 04/14/24 08:33 Patient Tobacco Use Status Never used Tobacco 04/14/24 08:33 e-Cigarette/Vaping Use Never Used 04/14/24 08:33 Thrive Assessment: Date of Thrive Assessment Date Thrive assessed 01/06/24 04/14/24 08:33 Const General: healthy appearing, no acute distress, alert and awake Nutritional Appearance: well nourished Orientation/consciousness: oriented to person, oriented to place and oriented to time HENMT Ears: TM's normal bilaterally General nose exam: Normal nasal mucous membranes and turbinates present Eyes Conjunctivae: conjunctivae normal Sclerae: sclerae normal Pupils: Equal, round and reactive pupils present Neck Neck: Yes no lymphadenopathy and Yes no JVD Thyroid: Thyroid normal Carotids: no bruits Resp Effort & Inspection: normal respiratory effort and not tachypneic Auscultation: no crackles, no rales, no rhonchi and no wheezes Cardio Rate: regular rate Rhythm: regular rhythm Heart sounds: no murmurs and normal S1 and S2 GI Palpation (GI): Soft to palpation, nontender, no hepatomegaly and no splenomegaly Auscultation: normal bowel sounds Skin General skin exam: no rashes or lesions noted and dry skin Neuro General: oriented to person, oriented to place and oriented to time Cranial nerves: Yes Equal, round and reactive pupils present Speech: No Abnormal speech present Gait exam (Neuro): Normal gait present Motor exam (neuro): no tremor noted Extrem Right upper extremity: full ROM Left upper extremity: full ROM Right lower extremity: full ROM; no edema Left lower extremity: full ROM; no edema Psych Mental Status: mental status grossly normal Speech and movement: Normal speech and movement present Affect: normal affect Attitude: cooperative Thought process: Normal thought process present Assessment and Plan Assessment & Plan (1) DMII (diabetes mellitus, type 2): Code(s): E11.9 - Type 2 diabetes mellitus without complications Qualifiers: Diabetes mellitus exterminator termite insulin use: without exterminator termite use Diabetes mellitus complication status: without complication Qualified Code(s): E11.9 - Type 2 diabetes mellitus without complications Plan: Patient blood sugars much better controlled. Most recent A1c is 6.4. He has been able to receive Trulicity 1.5 mg add an [facility] pharmacy. Goal LDL to be below 100, goal A1c to be below 7.0 (2) Hyperlipidemia: Code(s): E78.5 - Hyperlipidemia, unspecified Qualifiers: Hyperlipidemia type: mixed hyperlipidemia Qualified Code(s): E78.2 - Mixed hyperlipidemia Plan: Patient continues on statin therapy without any significant side effect. Goal LDL is to be below 100 (3) HTN (hypertension): Code(s): I10 - Essential (primary) hypertension Qualifiers: Hypertension type: essential hypertension Qualified Code(s): I10 - Essential (primary) hypertension Plan: Patient's blood pressure low side today. Patient asymptomatic. Will continue his current doses of antihypertensive medication with goal blood pressure to remain below 140/90 (4) Urinary frequency: Code(s): R35.0 - Frequency of micturition Plan: Reports having some urinary frequency and urgency when having a back issue. Does have severe lumbar spine disc disease. Did have oxybutynin in the past for overactive bladder start this medication. Orders: Orders Complete Blood Count no Diff Today I10 - Essential (primary) hypertension Hemoglobin A1c Today E11.9 - Type 2 diabetes mellitus without complications Microalbumin, Random (w Creat) Today I10 - Essential (primary) hypertension Prostate Specific Antigen Scr Today I10 - Essential (primary) hypertension, Z12.5 - Encounter for screening for malignant neoplasm of prostate Comprehensive [place]. Panel Fast Today I10 - Essential (primary) hypertension Lipid Panel Today E78.2 - Mixed hyperlipidemia Medications: New oxybutynin chloride ER 5 mg PO DAILY 90 days 90 tabs 1RF R35.0 - Frequency of micturition Discontinued dulaglutide (Trulicity) Discontinued Reason: Doctor's Order 3 mg (0.5 mL) subcut QWEEK 4 weeks 2 mL 3RF E11.9 - Type 2 diabetes mellitus without complications Patient Instructions: Goal: A1c to remain below 7.0, LDL to remain below 100 Barriers: Adherence to physical activity and healthy eating habits Coding Level of Care Code Est Pt Level 4 (67650) Diagnoses Type 2 diabetes mellitus without complication, without long-term current use of insulin E11.9 Diabetes mellitus exterminator termite insulin use: without nursing home use Diabetes mellitus complication status: without complication Mixed hyperlipidemia E78.2 Hyperlipidemia type: mixed hyperlipidemia Essential hypertension I10 Hypertension type: essential hypertension Urinary frequency R35.0
== END 2024-04-14 08:56 | disposition home or self-care (01) ==
PROVIDERS: PCP Physician Assistant; Visit Provider Physician Assistant
DX: E11.9 Type 2 diabetes mellitus without complications (principal); E78.2 Mixed hyperlipidemia; I10 Essential (primary) hypertension; R35.0 Frequency of micturition
CPT/HCPCS: 99214

== ENCOUNTER 2024-08-14 11:23 | Outpatient (AMB) | payer OTHER, SELFPAY ==
[2024-08-14 14:33] VITALS: BP 130/80; PULSE 82; TEMP 36.7; O2SAT 96
--- NOTE | 2024-08-14 14:33 | MHC.OFFWIV ---
Intake Vital Signs 08/14/24 14:33 Height 5 ft 8 in Weight 197 lb BMI 30.0 BP 130/80 Blood Pressure Location Lt brachial Position Sitting Pulse 82 Pulse Source Pulse Oximeter Temp 98.1 F Temp Source Oral Pulse Oximetry (%) 96 Oxygen Delivery Method Room Air Intake Visit Reasons: EP stomach pain, nausea, vomiting Intake Note: Pt is here today c/o stomach pain nausea and vomiting x4days Patient Tobacco Use Status: Never used Tobacco Allergies Seasonal Allergies Allergy (Severe, Verified 10/13/24 08:01) Cough Do you need a note to return to daycare/school/sports/work: Yes HPI EP stomach pain, nausea, vomiting HPI Details Patient is a 54-year-old male with diabetes, who complains of 4 days of acute abdominal discomfort, nausea and vomiting along with myalgias and malaise. He reports that symptoms are pretty much resolved at this point, but he missed a day of work and needs a work note. No report of fever or chills, respiratory symptoms, cough, shortness of breath or chest pain, diarrhea, weakness, headache, dizziness or vertigo, or other significant associated symptoms. [facility] Medical History Foot callus HTN (hypertension) Cervical myelopathy Hyperlipidemia Nephrolithiasis COVID-19 Neuropathy of right lower extremity Proteinuria Low testosterone Asthma, currently dormant Surgical History History of abdominal surgery Family History Mother Alzheimer disease Parkinson disease Mental health disorder Father High blood pressure Diabetes Social History Housing: House Alcohol intake: current Alcohol intake frequency: holidays/special occasions only Alcohol type: beer Patient Tobacco Use Status: Never used Tobacco e-Cigarette/Vaping Use: Never Used Second Hand Smoke Exposure: No service: No Current occupational status: employed 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 Current occupational exposures/hazards: No Cognitive needs: No Hearing needs: No Vision needs: No Review of Systems Const All systems reviewed & are unremarkable except as noted in HPI and below Physical Exam Vital Signs: Last Vital Signs Temp 98.1 F 08/14/24 14:33 Pulse 82 08/14/24 14:33 BP 130/80 08/14/24 14:33 Pulse Ox 96 08/14/24 14:33 Oxygen Delivery Method Room Air 08/14/24 14:33 BMI result Body Mass Index 30.0 Const General: cooperative, healthy appearing, comfortable, no acute distress, alert, awake, Physically active and well groomed; No anxious, diaphoretic, ill appearing, intoxicated appearing, poor hygiene or tired appearing Nutritional Appearance: average body habitus Orientation/consciousness: patient oriented x3 Limitations: no limitations Resp Effort & Inspection: normal respiratory effort, able to speak in complete sentences, no audible wheezes, no cough, no grunting, not labored, no nasal flaring, no retractions and symmetric chest movement Auscultation: clear to auscultation bilaterally, no crackles, no rales, no rhonchi, no wheezes, lung sounds not diminished and No rub present Cardio Palpation: normal PMI Rate: regular rate Rhythm: regular rhythm Heart sounds: S1 normal heart sound present and S2 normal heart sound present GI Palpation (GI): Soft to palpation, not firm, nontender, no guarding, not rigid, No hepatosplenomegaly present, no masses and No Rebound tenderness present Auscultation: normal bowel sounds General: Yes no CVA tenderness Back/Spine/Pelvis Back: no CVA tenderness Skin Other: Good color, warm and dry Neuro General: patient oriented x3 Psych Appearance: grossly normal Mental Status: mental status grossly normal Speech and movement: Normal speech and movement present Affect: normal affect Attitude: cooperative Thought process: Normal thought process present Insight: Good insight present (Psych) Judgement: Good judgement present (Psych) Assessment & Plan Assessment & Plan (1) Gastroenteritis: Code(s): K52.9 - Noninfective gastroenteritis and colitis, unspecified Plan Patient is a 54-year-old male with diabetes, who complains of 4 days of acute abdominal discomfort, nausea and vomiting along with myalgias and malaise. He reports that symptoms are pretty much resolved at this point, but he missed a day of work and needs a work note. No report of fever or chills, respiratory symptoms, cough, shortness of breath or chest pain, diarrhea, weakness, headache, dizziness or vertigo, or other significant associated symptoms. His vital signs are stable, is exam is unremarkable. It is likely that he had case of gastroenteritis, and it seems to be resolving at this point. If symptoms persist or worsen, he can follow up as needed, or go to the emergency department with worrisome symptoms. Otherwise, I gave him a note to excuse him from his missed day of work, and he can return to work on Friday if symptoms are still resolved Coding Level of Care Code Est Pt Level 4 (74127) Diagnoses Gastroenteritis K52.9
== END 2024-08-14 15:26 | disposition home or self-care (01) ==
PROVIDERS: PCP Physician Assistant; Visit Provider Physician Assistant Medical
DX: K52.9 Noninfective gastroenteritis and colitis, unspecified (principal)

== ENCOUNTER → 2024-08-14 11:23 | Outpatient (BNVA) | payer OTHER, SELFPAY | PROVIDERS: PCP Physician Assistant; Visit Provider Physician Assistant Medical ==

== ENCOUNTER 2024-10-12 06:03 | Outpatient (REF) | payer OTHER, SELFPAY ==
[2024-10-12 06:56] LABS: Hematocrit 37.4 % (42.0-52.0); Hemoglobin 12.9 g/dl (14.0-18.0); Mean Corpuscular HGB Conc 34.5 g/dl (31.0-36.0); Mean Corpuscular Hemoglobin 30.1 pg (27.0-33.0); Mean Corpuscular Volume 87.2 fL (80.0-98.0); Mean Platelet Volume 8.9 fL (9.4-12.4); Platelet Count 269 X10*3/uL (160-400); Red Blood Count 4.29 X10*6/uL (4.60-5.80); Red Cell Distribution Width 13.2 % (11.0-16.0); White Blood Count 5.4 X10*3/uL (4.8-10.8)
[2024-10-12 07:29] LABS: Microalbumin Urine < 5.0 mg/L
[2024-10-12 07:29] LABS: Alanine Aminotransferase 39 U/L (0-40); Albumin Level 4.2 g/dL (3.5-5.0); Anion Gap 14 (12-20); Aspartate Amino Transferase 42 U/L (5-37); Bilirubin Total 0.5 mg/dL (0.0-1.0); Blood Urea Nitrogen 20 mg/dL (9-16); Calcium 9.3 mg/dL (8.4-10.2); Carbon Dioxide 25 mmol/L (22-29); Chloride 102 mmol/L (96-108); Cholesterol 156 mg/dL (<200); Estimated Glomerular Filt Rate > 60; Glucose Fasting 175 mg/dL (60-99); HDL Cholesterol 57 mg/dL (>40); LDL Cholesterol Calculated 54 mg/dL (<100); Potassium 3.6 mmol/L (3.3-5.1); Sodium 137 mmol/L (135-145); Total Protein 7.3 g/dL (6.5-8.0); Triglycerides 226 mg/dL (<150)
[2024-10-12 07:46] LABS: Alkaline Phosphatase 78 U/L (39-117)
[2024-10-12 07:52] LABS: Estimated Average Glucose 137 mg/dL; Hemoglobin A1C 156.2622 umol/L; Hemoglobin A1c % 6.4 % (<6.0)
[2024-10-12 08:01] LABS: Prostate Specific Antigen Scr 1.63 ng/mL (<0.05-4.0)
== END 2024-10-12 06:04 | disposition home or self-care (01) ==
LOC: HO.LAB 06:03
PROVIDERS: PCP Physician Assistant; Visit Provider Physician Assistant
DX: I10 Essential (primary) hypertension (principal); E11.9 Type 2 diabetes mellitus without complications; E78.2 Mixed hyperlipidemia; Z12.5 Encounter for screening for malignant neoplasm of prostate
CPT/HCPCS: 36415; 80053; 80061; 82043; 82570; 83036; 84153; 85027

== ENCOUNTER 2024-10-13 07:46 | Outpatient (AMB) | payer OTHER, SELFPAY ==
--- NOTE | 2024-10-13 07:49 | A.OFFPC_ITS ---
Vital Signs 3 10/13/24 07:50 Height 5 ft 8 in Weight 197 lb BMI 30.0 BP 112/70 Blood Pressure Location Lt brachial Position Sitting Pulse 79 Pulse Source Pulse Oximeter Pulse Oximetry (%) 96 Oxygen Delivery Method Room Air Intake Visit Reasons: 6 Month F/U Intake Note: Patient here for a 6 month follow up Ship Fitter Required: No Accompanied by: Self / Same As Patient Allergies Seasonal Allergies Allergy (Severe, Verified 10/13/24 08:01) Cough Medication List - Last Reconciled 10/13/24 by Jerome Zambrano PA-C albuterol sulfate 90 mcg/actuation (ProAir HFA) 1 inh inhalation QID 30 days atorvastatin 80 mg PO DAILY 90 days blood sugar diagnostic (MedcurrentTouch Ultra Test strips) Testing Twice per day/ PRN blood-glucose meter ([employer] Ultra2 Meter) Testing once a day as needed clotrimazole 1% 1 appl topical BID 30 days dapagliflozin propanediol (Farxiga) 10 mg PO DAILY 90 days dulaglutide (Trulicity) 1.5 mg (0.5 mL) subcut QWEEK 4 weeks fluticasone propionate 50 mcg/actuation 1 spray intranasal BID 30 days lancets (MedcurrentTouch Delica Plus Lancet) testing Twice per day lisinopril-hydrochlorothiazide 20-12.5 mg 2 tabs PO DAILY 90 days loratadine 10 mg PO DAILY 90 days oxybutynin chloride ER 5 mg PO DAILY 90 days polyethylene glycol 3350 (Miralax) 238 grams PO ONCE 1 day tadalafil 20 mg PO DAILY PRN 5 days tamsulosin (Flomax) 0.4 mg PO DAILY 90 days trazodone 50 mg (1/2 x 100 mg) PO BEDTIME 90 days Tobacco use date assessed: 10/13/24 Dental Screening Dental Screen Date: 10/13/24 Did you have a dental visit in the last 12 months?: Yes Did you have a dental problem in the last 6 months where you did not have access to dental care?: No Was dental information given to patient?: Patient has dentist HPI 6 Month F/U 2 HPI0 Details Patient is a 54-year-old male here today fora f/u visit Patient's past medical history significant for hypertension, type 2 diabetes, seasonal allergies, family history of coronary artery disease, hyperlipidemia, obesity. .. Type 2 diabetes: Has been checking his blood sugars twice a day and reports improvement in his overall numbers. Has lost weight since last office visit. Has been able to restart Trulicity 1.5 mg to which he is getting in an end fill [place] pharmacy. Most recent A1c is 6.4. He is concerned about a right small toe callus. Was seeing a back seam stitcher though has . Would like to reestablish care with Podiatry for diabetic foot care .. Hypertension: Blood pressure today in office acceptable. . Denies any headaches, presyncopal episodes or dizziness chest pain, shortness for breath. .. Hyperlipidemia: Patient's most recent fasting lipid panel much improved since changing his lifestyle in on high potency statin. LDL has improved now below 100. Still has slight elevation in his triglycerides. Will work on dietary modification .. [facility] Medical History Foot callus HTN (hypertension) Cervical myelopathy Hyperlipidemia Nephrolithiasis COVID-19 Neuropathy of right lower extremity Proteinuria Low testosterone Asthma, currently dormant Surgical History History of abdominal surgery Family History Mother Alzheimer disease Parkinson disease Mental health disorder Father High blood pressure Diabetes Social History Housing: House Alcohol intake: current Alcohol intake frequency: holidays/special occasions only Alcohol type: beer Patient Tobacco Use Status: Never used Tobacco e-Cigarette/Vaping Use: Never Used Second Hand Smoke Exposure: No service: No Current occupational status: employed 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 1. Little interest or pleasure in doing things: not at all 2. Feeling down, depressed, or hopeless: not at all 3. Trouble falling or staying asleep, or sleeping too much: not at all 4. Feeling tired or having little energy: not at all 5. Poor appetite or overeating: not at all 6. Feeling bad about yourself - or that you are a failure or have let yourself or your family down: not at all 7. Trouble concentrating on things, such as reading the newspaper or watching television: not at all 8. Moving or speaking so slowly that other people could have noticed. Or the opposite - being so fidgety or restless that you have been moving around a lot more than usual: not at all 9. Thoughts that you would be better off or of hurting yourself in some way: not at all Total score: 0 Depression Screening Interpretation: Negative Depression Screening Done: Yes 30059 - PHQ-9 Billing: Yes Source: Developed by Drs. Linden Womack, Gabrielle Walker, Andrew Hernandez and colleagues, with an educational desmond from [email or web address]. Thrive Questionnaire Date Thrive assessed: 10/13/24 I am a: Patient What is your living situation today?: I have a steady place to live Within the past 12 months, did the food you bought not last and you didn't have the money to get more?: Never true Within the past 12 months, did you worry whether your food would run out before you got money to buy more?: Never true Do you have trouble paying for medicines?: No Do you have trouble getting transportation to medical appointments?: No Do you have trouble paying your heating and electricity bill?: No Do you have trouble taking care of your child, family member or friend?: No Do you have trouble with day-to-day activities such as bathing, preparing meals, shopping, managing finances, etc.?: No Are you currently unemployed and looking for a job?: No Are you interested in more education?: No Please select the resources that you would like help with: None Currently or been in a relationship where the following occur: No concerns reported THRIVE Score: 0 AUDIT C Alcohol Use Questionnaire (AUDIT-C) 1. How often do you have a drink containing alcohol?: Monthly or less 2. How many drinks containing alcohol do you have on a typical day when you are drinking?: 3 or 4 3. How often do you have six or more drinks on one occasion?: Never Total Score: 2 SHAMEKA-7 AMB Questionnaire SHAMEKA-7 Date SHAMEKA - 7 assessed: 10/13/24 Feeling nervous, anxious, or on edge: 0 = Not at all Not being able to stop or control worryin = Not at all Worrying too much about different things: 0 = Not at all Trouble relaxin = Not at all Being so restless that it is hard to sit still: 0 = Not at all Becoming easily annoyed or irritable: 0 = Not at all Feeling afraid as if something awful might happen: 0 = Not at all Total SHAMEKA-7 score (0-4 normal; 5-9 mild; 10-14 moderate; 15-21 severe): 0 Source: Developed by Drs. Linden Womack, Gabrielle Walker, Andrew Hernandez and colleagues, with an educational desmond from [email or web address]. SHAMEKA-7 Assessment Billing SHAMEKA-7 Assessment Tool: SHAMEKA-7 Assessment 47489 Review of Systems Const Denies headache(s) Eyes Denies loss of vision ENT Denies vertigo, Denies dizziness, Denies headache(s) and Denies sore throat Card Denies chest pain, Denies leg edema and Denies lightheadedness Resp Denies cough, Denies hemoptysis and Denies wheezing GI Denies abdominal pain, Denies melena, Denies constipation, Denies diarrhea and Denies vomiting Denies dysuria, Denies urinary frequency and Denies urinary urgency Musc Denies arthralgias, Denies joint swelling, Denies numbness and Denies tingling Neuro Denies Abnormal speech present, Denies behavioral changes, Denies vertigo, Denies dizziness, Denies headache(s), Denies loss of vision, Denies memory loss, Denies numbness and Denies tingling Psych Denies anxiety, Denies behavioral changes, Denies depression, Denies memory loss and Denies panic attacks Joaquín/Lymph Denies easy bleeding and Denies easy bruising Aller/Immun Denies wheezing Physical exam (Primary Care) Vital Signs: Last Vital Signs Pulse 79 10/13/24 07:50 BP 112/70 10/13/24 07:50 Pulse Ox 96 10/13/24 07:50 Oxygen Delivery Method Room Air 10/13/24 07:50 BMI result Body Mass Index 30.0 Tobacco/Smoking Status: Tobacco use Status Tobacco use date assessed 10/13/24 10/13/24 07:57 Patient Tobacco Use Status Never used Tobacco 10/13/24 07:50 e-Cigarette/Vaping Use Never Used 10/13/24 07:50 PHQ-9: PHQ-9 Score PHQ-9: Total score 0 10/13/24 07:57 Depression Screening Interpretation: Negative Thrive Assessment: Date of Thrive Assessment Date Thrive assessed 10/13/24 10/13/24 07:57 Currently or been in a relationship where the following occur: No concerns reported Const General: healthy appearing, no acute distress, alert and awake Nutritional Appearance: well nourished Orientation/consciousness: oriented to person, oriented to place and oriented to time HENMT Ears: TM's normal bilaterally General nose exam: Normal nasal mucous membranes and turbinates present Eyes Conjunctivae: conjunctivae normal Sclerae: sclerae normal Pupils: Equal, round and reactive pupils present Neck Neck: Yes no lymphadenopathy and Yes no JVD Thyroid: Thyroid normal Carotids: no bruits Resp Effort & Inspection: normal respiratory effort and not tachypneic Auscultation: no crackles, no rales, no rhonchi and no wheezes Cardio Rate: regular rate Rhythm: regular rhythm Heart sounds: no murmurs and normal S1 and S2 GI Palpation (GI): Soft to palpation, nontender, no hepatomegaly and no splenomegaly Auscultation: normal bowel sounds Skin General skin exam: no rashes or lesions noted and dry skin Neuro General: oriented to person, oriented to place and oriented to time Cranial nerves: Yes Equal, round and reactive pupils present Speech: No Abnormal speech present Gait exam (Neuro): Normal gait present Motor exam (neuro): no tremor noted Extrem Right upper extremity: full ROM Left upper extremity: full ROM Right lower extremity: full ROM; no edema Left lower extremity: full ROM; no edema Ankle/foot/toe images: 2 1. 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 insulin use: without fci use Diabetes mellitus complication status: without complication Essential hypertension I10 Hypertension type: essential hypertension Mixed hyperlipidemia E78.2 Hyperlipidemia type: mixed hyperlipidemia Dermatitis L30.9 Foot callus L84 Additional Codes PHQ-9 - 62410 - PHQ-9 Billing: Yes ([id number]) SHAMEKA-7 Assessment Billing - SHAMEKA-7 Assessment Tool: SHAMEKA-7 Assessment 08102 ([id number]) Assessment & Plan Assessment & Plan (1) DMII (diabetes mellitus, type 2): Code(s): E11.9 - Type 2 diabetes mellitus without complications Category: Medical Qualifiers: Diabetes mellitus exterminator helper termite insulin use: without fci use Diabetes mellitus complication status: without complication Qualified Code(s): E11.9 - Type 2 diabetes mellitus without complications Plan: Patient's type 2 diabetes well controlled. Will continue current dose of Farxiga and Trulicity. Goal A1c is to remain below 7.0. (2) HTN (hypertension): Code(s): I10 - Essential (primary) hypertension Category: Medical Qualifiers: Hypertension type: essential hypertension Qualified Code(s): I10 - Essential (primary) hypertension Plan: Patient's blood pressure acceptable today in office. Will continue current dose of antihypertensive medication with goal blood pressure to remain below 140/90 (3) Hyperlipidemia: Code(s): E78.5 - Hyperlipidemia, unspecified Category: Medical Qualifiers: Hyperlipidemia type: mixed hyperlipidemia Qualified Code(s): E78.2 - Mixed hyperlipidemia Plan: Patient's most recent lipid panel showing excellent control of his total cholesterol and LDL. Still has slightly elevated triglycerides. Goal LDL to remain below 100 (4) Dermatitis: Code(s): L30.9 - Dermatitis, unspecified Category: Medical Plan: Has developed hand cracking and dermatitis. Will supply patient with an ointment to use on affected areas. Advised on Aquaphor skin treatment every day. (5) Foot callus: Code(s): L84 - Corns and callosities Category: Medical Plan: Has developed a callus over his right foot. Will like to see back seam stitcher for treatment Orders: Orders 2 Complete Blood Count no Diff 6 Months I10 - Essential (primary) hypertension Lipid Panel 6 Months E78.2 - Mixed hyperlipidemia Comprehensive [place]. Panel Fast 6 Months I10 - Essential (primary) hypertension Hemoglobin A1c 6 Months E11.9 - Type 2 diabetes mellitus without complications Referrals 2 Podiatry Referral L84 - Corns and callosities Medications: New 2 triamcinolone acetonide 0.5% 1 appl topical DAILY 30 days 15 grams 0RF L30.9 - Dermatitis, unspecified Refilled 2 dulaglutide (Trulicity) 1.5 mg (0.5 mL) subcut QWEEK 4 weeks 2 mL 3RF E11.9 - Type 2 diabetes mellitus without complications dapagliflozin propanediol (Farxiga) 10 mg PO DAILY 90 days 90 tabs 1RF E11.9 - Type 2 diabetes mellitus without complications
[2024-10-13 07:50] VITALS: BP 112/70; PULSE 79; O2SAT 96
== END 2024-10-13 08:29 | disposition home or self-care (01) ==
PROVIDERS: PCP Physician Assistant; Visit Provider Physician Assistant
DX: E11.620 Type 2 diabetes mellitus with diabetic dermatitis (principal); I10 Essential (primary) hypertension; E78.2 Mixed hyperlipidemia; L30.9 Dermatitis, unspecified; L84 Corns and callosities

== ENCOUNTER → 2024-10-13 07:46 | Outpatient (BNVA) | payer OTHER, SELFPAY | PROVIDERS: PCP Physician Assistant; Visit Provider Physician Assistant | DX: E11.9 Type 2 diabetes mellitus without complications (principal); I10 Essential (primary) hypertension; E78.2 Mixed hyperlipidemia; L30.9 Dermatitis, unspecified; L84 Corns and callosities | CPT/HCPCS: 96127 ==

== ENCOUNTER 2025-02-02 08:21 | Outpatient (AMB) | payer OTHER, SELFPAY ==
--- NOTE | 2025-02-02 09:25 | MHC.OFFWIV ---
Intake Vital Signs 02/02/25 09:28 Weight 200 lb BP 118/80 Blood Pressure Location Rt brachial Position Sitting Pulse 90 Temp 97.9 F Temp Source Oral Pulse Oximetry (%) 97 Oxygen Delivery Method Room Air Intake Visit Reasons: EP Sore throat, cough, losing voice Intake Note: Patient here for cough, losing voice, congestion and sore throat that has been present for 2 weeks. Patient Tobacco Use Status: Never used Tobacco Allergies Seasonal Allergies Allergy (Severe, Verified 02/02/25 09:32) Cough Do you need a note to return to daycare/school/sports/work: No HPI EP Sore throat, cough, losing voice HPI Details This is a 55-year-old male patient who presents to the walk-in clinic today with a 2 week history of an unresolving dry cough, loss of voice, nasal congestion, sinus pain. Denies any fevers or chills, however has noted feeling hot and sweaty at times. Has not utilized any [id number] treatment. History of asthma and has an albuterol inhaler at home, however he has not been using it. [facility] Medical History Foot callus HTN (hypertension) Cervical myelopathy Hyperlipidemia Nephrolithiasis COVID-19 Neuropathy of right lower extremity Proteinuria Low testosterone Asthma, currently dormant Surgical History History of abdominal surgery Family History Mother Alzheimer disease Parkinson disease Mental health disorder Father High blood pressure Diabetes Social History Housing: House Alcohol intake: current Alcohol intake frequency: holidays/special occasions only Alcohol type: beer Patient Tobacco Use Status: Never used Tobacco e-Cigarette/Vaping Use: Never Used Second Hand Smoke Exposure: No service: No Current occupational status: employed 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[employer] Current occupational exposures/hazards: No Cognitive needs: No Hearing needs: No Vision needs: No Review of Systems Const All systems reviewed & are unremarkable except as noted in HPI and below Physical Exam Vital Signs: Last Vital Signs Temp 97.9 F 02/02/25 09:28 Pulse 90 02/02/25 09:28 BP 118/80 02/02/25 09:28 Pulse Ox 97 02/02/25 09:28 Oxygen Delivery Method Room Air 02/02/25 09:28 Const General: cooperative and no acute distress Limitations: no limitations HEENT Head: Yes normal to inspection Ears: hearing grossly normal bilaterally and TM's normal bilaterally General nose exam: Normal external nose present and Nasal discharge present mucoid Face and sinus: Yes sinus tenderness (Frontal, maxillary) Mouth: Normal oral and palatal mucosa present Throat: Yes posterior oropharynx abnormal (Mild erythema, no tonsillar hypertrophy, or exudate) Neck Neck: Yes no lymphadenopathy Resp Effort & Inspection: normal respiratory effort and Actively coughing Quality: dry Auscultation: clear to auscultation bilaterally Cardio Rate: regular rate Rhythm: regular rhythm Skin General skin exam: no rashes or lesions noted Extrem General: Yes capillary refill normal and Yes no clubbing, cyanosis or edema Psych Appearance: grossly normal Mental Status: mental status grossly normal Speech and movement: Normal speech and movement present Results AMB Rapid Strep AMB Rapid Strep Negative Last Edit by JOHANN Carrington on 02/02/25 09:51 Assessment & Plan Assessment & Plan (1) Acute sinusitis: Code(s): J01.90 - Acute sinusitis, unspecified Qualifiers: Sinusitis location: maxillary Recurrence: non-recurrent Qualified Code(s): J01.00 - Acute maxillary sinusitis, unspecified Plan: Azithromycin and benzonatate prescribed. We reviewed indications, use, possible side effects of both medications. Rapid strep was negative. Recommended lozenges an adequate hydration. Patient may utilize albuterol inhaler at home as needed. If he does not improve with treatment, or if symptoms worsen/new symptoms such as fevers or shortness of breath develop, he can return to the clinic or the emergency department for evaluation. Patient verbalizes understanding and agrees to plan. Orders: Orders AMB Rapid Strep Screen Today Z13.9 - Encounter for screening, unspecified Medications: New benzonatate 100 mg PO BID 7 days PRN 14 caps 0RF cough R05.9 - Cough, unspecified azithromycin For 250 mg dose pack: take 500 mg today (day 1), then 250 mg for 4 days (days 2-5) PO 6 tabs 0RF J01.90 - Acute sinusitis, unspecified Coding Level of Care Code Est Pt Level 4 (13977) Diagnoses Acute non-recurrent maxillary sinusitis J01.00 Sinusitis location: maxillary Recurrence: non-recurrent
[2025-02-02 09:28] VITALS: BP 118/80; PULSE 90; TEMP 36.6; O2SAT 97
== END 2025-02-02 09:58 | disposition home or self-care (01) ==
PROVIDERS: PCP Physician Assistant; Visit Provider Nurse Practitioner Family
DX: Z13.9 Encounter for screening, unspecified (principal); J01.00 Acute maxillary sinusitis, unspecified

== ENCOUNTER → 2025-02-02 08:21 | Outpatient (BNVA) | payer OTHER, SELFPAY | PROVIDERS: PCP Physician Assistant | DX: J01.00 Acute maxillary sinusitis, unspecified (principal); J45.909 Unspecified asthma, uncomplicated; Z79.899 Other long term (current) drug therapy | CPT/HCPCS: 87880 ==

== ENCOUNTER 2025-03-01 07:49 | Outpatient (REF) | payer OTHER, SELFPAY ==
[2025-03-01 09:29] LABS: Hematocrit 38.3 % (42.0-52.0); Hemoglobin 12.9 g/dl (14.0-18.0); Mean Corpuscular HGB Conc 33.7 g/dl (31.0-36.0); Mean Corpuscular Hemoglobin 29.3 pg (27.0-33.0); Mean Platelet Volume 8.7 fL (9.4-12.4); Platelet Count 286 X10*3/uL (160-400); Red Cell Distribution Width 12.7 % (11.0-16.0); White Blood Count 4.5 X10*3/uL (4.8-10.8)
[2025-03-01 09:48] LABS: Estimated Average Glucose 143 mg/dL; Hemoglobin A1c % 6.6 % (<6.0)
[2025-03-01 09:56] LABS: Alanine Aminotransferase 32 U/L (0-40); Albumin Level 4.5 g/dL (3.5-5.0); Alkaline Phosphatase 89 U/L (39-117); Anion Gap 11 (12-20); Aspartate Amino Transferase 43 U/L (5-37); Bilirubin Total 0.6 mg/dL (0.0-1.0); Blood Urea Nitrogen 18 mg/dL (9-16); Calcium 9.9 mg/dL (8.4-10.2); Carbon Dioxide 27 mmol/L (22-29); Chloride 104 mmol/L (96-108); Cholesterol 172 mg/dL (<200); Estimated Glomerular Filt Rate > 60; Glucose Fasting 122 mg/dL (60-99); HDL Cholesterol 58 mg/dL (>40); LDL Cholesterol Calculated 86 mg/dL (<100); Potassium 3.6 mmol/L (3.3-5.1); Sodium 138 mmol/L (135-145); Total Protein 7.2 g/dL (6.5-8.0); Triglycerides 144 mg/dL (<150)
== END 2025-03-01 07:50 | disposition home or self-care (01) ==
LOC: HO.LAB 07:49
PROVIDERS: PCP Physician Assistant; Visit Provider Physician Assistant
DX: Z00.00 Encounter for general adult medical examination without abnormal findings (principal); Z23 Encounter for immunization; I10 Essential (primary) hypertension; E11.9 Type 2 diabetes mellitus without complications; E78.2 Mixed hyperlipidemia; Z79.84 Long term (current) use of oral hypoglycemic drugs
CPT/HCPCS: 36415; 80053; 80061; 83036; 85027; 90471; 90715; 96127

== ENCOUNTER 2025-03-01 07:49 | Outpatient (AMB) | payer OTHER, SELFPAY ==
--- OUTSIDE RECORDS SUMMARY | 2025-03-01 07:53 | XMS_ITS | Patient Health Record ---
[facility] Address [address] [place] [address] Care Team Providers Care Consulting Solution Manager Name Role Phone Anton Steward Primary Care Provider Gabriel Blackwell Unavailable [phone] Reason For Referral No Information Medications Medication SIG (Take, Route, Frequency, Duration) Notes Start Date End Date Status ProAir HFA 108 (90 Base) MCG/ACT Inhalation for 25 Active metFORMIN HCl ER 500 MG Oral for 30 Active Lisinopril-hydroCHLOROthiaz spencer 20-25 MG Oral for 90 Active Atorvastatin Calcium 20 MG Oral for 90 Active Social History Tobacco use other than smoking: Question Answer Notes Are you an other tobacco user? No Problems Problem Type SNOMED Code ICD Code Onset Dates Problem Status W/U Status Risk Notes Problem Type 2 diabetes mellitus with other diabetic neurological complication (E11.49) Active confirmed Plan Of Treatment Pending Test Test Name Order Date X ray : Foot, left 2V 05/05/2015 X ray : Foot, right 2V 05/05/2015 [id number] NAIL, 6 OR MORE 07/14/2015 [id number] NAIL, 6 OR MORE 05/05/2015 [id number] Plate 05/05/2015 [id number] SKIN LESIONS, OVER 4 05/05/20 15 [id number] SKIN LESIONS, OVER 4 07/14/20 15 Insurance Providers Payer Name Payer Address Payer Phone Subscriber Number Group Number Insured Name Patient Relationship to Insured Coverage Start Date Coverage End Date [facility] [address] [place] [address] [id number] Arreola, Bassam Self - patient is the insured Medical (General) History Medical History History ICD Code asthma Chicken pox Cholesterol Diabetes mellitus High blood pressure Surgical History Surgery Date(Month/Year) Stomach surgery 1970
[2025-03-01 08:01] VITALS: BP 120/80; PULSE 79; TEMP 36.3; O2SAT 97; BMI 29.2
--- NOTE | 2025-03-01 08:01 | MHC.PC.OV ---
Vital Signs 03/01/25 08:01 Height 5 ft 8 in Weight 192 lb 2 oz BMI 29.2 BP 120/80 Blood Pressure Location Lt brachial Position Sitting Pulse 79 Pulse Source Pulse Oximeter Temp 97.3 F Temp Source Temporal Artery Scan Pulse Oximetry (%) 97 Oxygen Delivery Method Room Air Intake Visit Reasons: Annual Exam- see comments Intake Note: Patient is here today for a physical. Marble Setter Required: No Sports Recruiter: Not Required per policy Accompanied by: Self / Same As Patient Allergies Seasonal Allergies Allergy (Severe, Verified 03/01/25 08:10) Cough Medication List - Last Reconciled 03/01/25 by Jerome Zambrano PA-C albuterol sulfate 90 mcg/actuation (ProAir HFA) 1 inh inhalation QID 30 days atorvastatin 80 mg PO DAILY 90 days blood sugar diagnostic (Tracked.comTouch Ultra Test strips) Testing Twice per day/ PRN blood-glucose meter (Embarr Downsuch Ultra2 Meter) Testing once a day as needed clotrimazole 1% 1 appl topical BID 30 days dapagliflozin propanediol (Farxiga) 10 mg PO DAILY 90 days dulaglutide (Trulicity) 1.5 mg (0.5 mL) subcut QWEEK 4 weeks fluticasone propionate 50 mcg/actuation 1 spray intranasal BID 30 days lancets (Tracked.comTouch Delica Plus Lancet) testing Twice per day lisinopril-hydrochlorothiazide 20-12.5 mg 2 tabs PO DAILY 90 days loratadine 10 mg PO DAILY 90 days oxybutynin chloride ER 5 mg PO DAILY 90 days polyethylene glycol 3350 (Miralax) 238 grams PO ONCE 1 day tadalafil 20 mg PO DAILY PRN 5 days tamsulosin (Flomax) 0.4 mg PO DAILY 90 days trazodone 50 mg (1/2 x 100 mg) PO BEDTIME 90 days triamcinolone acetonide 0.5% 1 appl topical DAILY 30 days Tobacco use date assessed: 03/01/25 Dental Screening Dental Screen Date: 10/13/24 HPI Annual Exam- see comments HPI Details Patient is a 54-year-old male here today fora f/u visit Patient's past medical history significant for hypertension, type 2 diabetes, seasonal allergies, family history of coronary artery disease, hyperlipidemia, obesity. .. Type 2 diabetes: Has been checking his blood sugars twice a day and reports improvement in his overall numbers. Has lost weight since last office visit. Has been able to restart Trulicity 1.5 mg to which he is getting in an end fill [place] pharmacy. Most recent A1c acceptable. He has gotten eye exam without any retinopathy noted, re-evaluation in 1 year .. Hypertension: Blood pressure today in office acceptable. . Denies any headaches, presyncopal episodes or dizziness chest pain, shortness for breath. .. Hyperlipidemia: Patient's most recent fasting lipid panel much improved since changing his lifestyle in on high potency statin. LDL has improved now below 100. Still has slight elevation in his triglycerides. Will work on dietary modification Colon cancer screening: needs screening colonoscopy- seems to have been called multiple times to set up appointment with GI though has not been successful- HE PROMISES TO CALL IN NEAR FUTURE TO SET UP APPOINTMENT WITH GI : Vaccines: Up-to-date with pneumonia Considering shingrex. UTD with COVID, needs tetanus vaccine [facility] Medical History Foot callus HTN (hypertension) Cervical myelopathy Hyperlipidemia Nephrolithiasis COVID-19 Neuropathy of right lower extremity Proteinuria Low testosterone Asthma, currently dormant Surgical History History of abdominal surgery Family History Mother Alzheimer disease Parkinson disease Mental health disorder Father High blood pressure Diabetes Social History Housing: House Alcohol intake: current Alcohol intake frequency: holidays/special occasions only Alcohol type: beer Patient Tobacco Use Status: Never used Tobacco e-Cigarette/Vaping Use: Never Used Second Hand Smoke Exposure: No service: No Current occupational status: employed 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 1. Little interest or pleasure in doing things: not at all 2. Feeling down, depressed, or hopeless: not at all 3. Trouble falling or staying asleep, or sleeping too much: not at all 4. Feeling tired or having little energy: nearly every day 5. Poor appetite or overeating: not at all 6. Feeling bad about yourself - or that you are a failure or have let yourself or your family down: not at all 7. Trouble concentrating on things, such as reading the newspaper or watching television: not at all 8. Moving or speaking so slowly that other people could have noticed. Or the opposite - being so fidgety or restless that you have been moving around a lot more than usual: not at all 9. Thoughts that you would be better off or of hurting yourself in some way: not at all Total score: 3 Depression Screening Interpretation: Positive Depression Screening Follow-up: Existing condition Depression Screening Done: Yes 42116 - PHQ-9 Billing: Yes Source: Developed by Drs. Linden Womack, Gabrielle Walker, Andrew Hernandez and colleagues, with an educational desmond from [employer]. Thrive Questionnaire Date Thrive assessed: 10/13/24 I am a: Patient What is your living situation today?: I have a steady place to live Within the past 12 months, did the food you bought not last and you didn't have the money to get more?: Never true Within the past 12 months, did you worry whether your food would run out before you got money to buy more?: Never true Do you have trouble paying for medicines?: No Do you have trouble getting transportation to medical appointments?: No Do you have trouble paying your heating and electricity bill?: No Do you have trouble taking care of your child, family member or friend?: No Do you have trouble with day-to-day activities such as bathing, preparing meals, shopping, managing finances, etc.?: No Are you currently unemployed and looking for a job?: No Are you interested in more education?: No Please select the resources that you would like help with: None Currently or been in a relationship where the following occur: No concerns reported THRIVE Score: 0 AUDIT C Alcohol Use Questionnaire (AUDIT-C) 1. How often do you have a drink containing alcohol?: Monthly or less 2. How many drinks containing alcohol do you have on a typical day when you are drinking?: 1 or 2 3. How often do you have six or more drinks on one occasion?: Never Total Score: 1 SHAMEKA-7 AMB Questionnaire SHAMEKA-7 Date SHAMEKA - 7 assessed: 10/13/24 Feeling nervous, anxious, or on edge: 0 = Not at all Not being able to stop or control worryin = Not at all Worrying too much about different things: 0 = Not at all Trouble relaxin = Not at all Being so restless that it is hard to sit still: 0 = Not at all Becoming easily annoyed or irritable: 0 = Not at all Feeling afraid as if something awful might happen: 0 = Not at all Total SHAMEKA-7 score (0-4 normal; 5-9 mild; 10-14 moderate; 15-21 severe): 0 Source: Developed by Drs. Linden Womack, Gabrielle Walker, Andrew Hernandez and colleagues, with an educational desmond from [employer]. SHAMEKA-7 Assessment Billing SHAMEKA-7 Assessment Tool: SHAMEKA-7 Assessment 97569 Review of Systems Const Denies body aches, Denies chills, Denies excessive sweating, Denies fatigue, Denies fever(s) and Denies headache(s) Eyes Denies blurry vision ENT Denies dysphagia, Denies vertigo, Denies dizziness, Denies headache(s), Denies hearing loss and Denies tinnitus Card Denies chest pain, Denies chest pain with activity, Denies syncope, Denies irregular heart rhythm and Denies dyspnea Resp Denies chest congestion, Denies cough, Denies hemoptysis, Denies dyspnea and Denies wheezing GI Denies abdominal pain, Denies melena, Denies hematochezia, Denies coffee ground emesis, Denies dysphagia, Denies diarrhea, Denies nausea and Denies vomiting Denies difficulty urinating, Denies dysuria, Denies urinary frequency, Denies urinary hesitancy and Denies urinary urgency Musc Denies arthralgias, Denies limited range of motion, Denies muscle cramps and Denies muscle weakness Skin/Breast Denies rash and Denies skin ulcer Neuro Denies Abnormal speech present, Denies confusion, Denies vertigo, Denies dizziness, Denies syncope, Denies headache(s), Denies memory loss and Denies seizure-like activity Psych Denies anxiety, Denies confusion, Denies depression, Denies memory loss, Denies panic attacks and Denies paranoia Endo Denies excessive sweating, Denies fatigue, Denies flushing, Denies polydipsia and Denies polyuria Aller/Immun Denies wheezing Physical exam (Primary Care) Vital Signs: Last Vital Signs Temp 97.3 F 03/01/25 08:01 Pulse 79 03/01/25 08:01 BP 120/80 03/01/25 08:01 Pulse Ox 97 03/01/25 08:01 Oxygen Delivery Method Room Air 03/01/25 08:01 BMI result Body Mass Index 29.2 Tobacco/Smoking Status: Tobacco use Status Tobacco use date assessed 03/01/25 03/01/25 08:08 Patient Tobacco Use Status Never used Tobacco 03/01/25 08:08 e-Cigarette/Vaping Use Never Used 03/01/25 08:08 PHQ-9: PHQ-9 Score PHQ-9: Total score 3 03/01/25 08:08 Depression Screening Interpretation: Positive Depression Screening Follow-up: Existing condition Thrive Assessment: Date of Thrive Assessment Date Thrive assessed 10/13/24 03/01/25 08:08 Currently or been in a relationship where the following occur: No concerns reported Const General: cooperative, comfortable, no acute distress, alert and awake; No confusion Orientation/consciousness: oriented to person, oriented to place, patient oriented x3 and No confusion HENMT Head: Yes normocephalic Ears: external ears normal and TM's normal bilaterally Face and sinus: No sinus tenderness Mouth: Normal oral and palatal mucosa present and tongue normal Teeth and gingiva: dentition normal and gingiva normal Throat: Yes posterior oropharynx normal, Yes tonsils normal and Yes uvula midline Eyes Conjunctivae: conjunctivae normal Sclerae: sclerae normal Pupils: Equal, round and reactive pupils present EOM: EOMs intact bilaterally Direct Ophthalmoscopy: No no photophobia Neck Neck: Yes no lymphadenopathy, No tender and Yes no JVD Thyroid: Thyroid normal Carotids: no bruits Chest Chest palpation & inspection: no tenderness Resp Effort & Inspection: normal respiratory effort, no audible wheezes, not labored and no stridor Auscultation: no crackles, no rales, no rhonchi and no wheezes Cardio Jugular venous distension: no JVD Rate: regular rate, not bradycardic and not tachycardic Rhythm: regular rhythm Bruits: no carotid bruits Peripheral pulses: Peripheral pulses 2+ throughout GI Inspection: Yes normal to inspection, No abdominal wall ecchymosis and No visible herniation Palpation (GI): Soft to palpation, nontender, no guarding, not rigid and No hepatosplenomegaly present Auscultation: normoactive bowel sounds General: Yes no CVA tenderness Back/Spine/Pelvis Back: no CVA tenderness and No back tenderness Cervical Spine: cervical ROM normal Thoracic/Lumbar Spine: thoracic and lumbar spine normal to inspection, straight leg raise negative bilaterally, No thoraco-lumbar ROM limited and No lumbar spinal tenderness Skin Lesions: no lesions Rashes: no rashes Wounds: no wounds Neuro General: oriented to person, oriented to place, patient oriented x3, CN's II-XI intact bilaterally and No confusion Cranial nerves: Yes Equal, round and reactive pupils present and Yes Normal accommodation reflex present Cognition (Neuro): normal cognition Speech: No Abnormal speech present Gait exam (Neuro): Normal gait present Motor exam (neuro): 5/5 motor strength present throughout Extrem Right upper extremity: full ROM; no cyanosis Left upper extremity: full ROM; no cyanosis Right lower extremity: no edema Left lower extremity: no edema Psych Appearance: grossly normal Mental Status: mental status grossly normal Affect: normal affect Attitude: cooperative Thought process: Normal thought process present Results AMB Hemoglobin A1c AMB Hemoglobin A1c 6.7 % Last Edit by COLLETTE Fernandez on 03/01/25 08:13 Coding Level of Care Code Est Pt Prev Care 40-64y(88700) Diagnoses Annual physical exam Z00.00 Type 2 diabetes mellitus without complication, without long-term current use of insulin E11.9 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 insulin use: without middle or intermediate school principal use Diabetes mellitus complication status: without complication Essential hypertension I10 Hypertension type: essential hypertension Mixed hyperlipidemia E78.2 Hyperlipidemia type: mixed hyperlipidemia Colon cancer screening Z12.11 Additional Codes PHQ-9 - 05699 - PHQ-9 Billing: Yes ([id number]) SHAMEKA-7 Assessment Billing - SHAMEKA-7 Assessment Tool: SHAMKEA-7 Assessment 30448 ([id number]) Assessment & Plan Assessment & Plan (1) Annual physical exam: Code(s): Z00.00 - Encounter for general adult medical examination without abnormal findings Category: Medical Plan: As per HPI (2) DMII (diabetes mellitus, type 2): Code(s): E11.9 - Type 2 diabetes mellitus without complications Category: Medical Qualifiers: 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 insulin use: without middle or intermediate school principal use Diabetes mellitus complication status: without complication Qualified Code(s): E11.9 - Type 2 diabetes mellitus without complications Plan: Patient's type 2 diabetes well controlled. Will continue current dose of Farxiga and Trulicity. Goal A1c is to remain below 7.0. (3) HTN (hypertension): Code(s): I10 - Essential (primary) hypertension Category: Medical Qualifiers: Hypertension type: essential hypertension Qualified Code(s): I10 - Essential (primary) hypertension Plan: Patient's blood pressure acceptable today in office. Will continue current dose of antihypertensive medication with goal blood pressure to remain below 140/90 (4) Hyperlipidemia: Code(s): E78.5 - Hyperlipidemia, unspecified Category: Medical Qualifiers: Hyperlipidemia type: mixed hyperlipidemia Qualified Code(s): E78.2 - Mixed hyperlipidemia Plan: Patient's most recent lipid panel showing excellent control of his total cholesterol and LDL. Still has slightly elevated triglycerides. Goal LDL to remain below 100 (5) Colon cancer screening: Comment: index screening colonoscopy Code(s): Z12.11 - Encounter for screening for malignant neoplasm of colon Category: Medical Plan: Patient willing to be referred to gastroenterology for screening colonoscopy. Orders: Orders Lipid Panel Today I10 - Essential (primary) hypertension Comprehensive [place]. Panel Fast Today I10 - Essential (primary) hypertension TDaP Immunization Today Z12.11 - Encounter for screening for malignant neoplasm of colon, Z23 - Encounter for immunization AMB Hemoglobin A1c Today E11.9 - Type 2 diabetes mellitus without complications Complete Blood Count no Diff Today I10 - Essential (primary) hypertension Hemoglobin A1c Today E11.9 - Type 2 diabetes mellitus without complications Referrals Gastroenterology Referral Z12.11 - Encounter for screening for malignant neoplasm of colon Medications: New Boostrix Tdap (diphth,pertus(acell),tetanus) 0.5 mL IM ONCE 0.5 mL 0RF NS Z12.11 - Encounter for screening for malignant neoplasm of colon, Z23 - Encounter for immunization Patient Instructions: :Goal: A1c to remain below 7.0, LDL to be below 100, blood pressure to remain below 140/90 Barriers: Adherence to physical activity and healthy eating habits
== END 2025-03-01 08:35 | disposition home or self-care (01) ==
LOC: HO.HMCH 07:50
PROVIDERS: PCP Physician Assistant; Visit Provider Physician Assistant
DX: Z00.00 Encounter for general adult medical examination without abnormal findings (principal); E11.9 Type 2 diabetes mellitus without complications; I10 Essential (primary) hypertension; E78.2 Mixed hyperlipidemia; Z12.11 Encounter for screening for malignant neoplasm of colon; Z23 Encounter for immunization

== ENCOUNTER 2025-08-12 10:36 | Outpatient (AMB) | payer OTHER, SELFPAY ==
--- OUTSIDE RECORDS SUMMARY | 2025-08-12 10:37 | XMS_ITS | Patient Health Record ---
[facility] Address [address] [place] [address] Care Team Providers Care Sales Stock Associate Name Role Phone Anton Steward Primary Care Provider Gabriel Love Unavailable [phone] Reason For Referral No Information Medications Medication SIG (Take, Route, Frequency, Duration) Notes Start Date End Date Status ProAir HFA 108 (90 Base) MCG/ACT Inhalation; Duration: 25 Act disha metFORMIN HCl ER 500 MG Oral; Duration: 30 Active Lisinopril-hydroCHLOROthiaz spencer 20-25 MG Oral; Duration: 90 Active Atorvastatin Calcium 20 MG Oral; Duration: 90 Active Social History Tobacco use other than smoking: Question Answer Notes Are you an other tobacco user? No Problems Problem Type SNOMED Code ICD Code Onset Dates Problem Status W/U Status Risk Notes Problem Neurologic disorder associated with type II diabetes mellitus ([id number]) Type 2 diabetes mellitus with other diabetic neurological complication (E11.49) Active confirmed Plan Of Treatment Pending Test Test Name Order Date X ray : Foot, left 2V 05/05/2015 X ray : Foot, right 2V 05/05/2015 [id number] NAIL, 6 OR MORE 07/14/2015 [id number] NAIL, 6 OR MORE 05/05/2015 [id number] Plate 05/05/2015 [id number] SKIN LESIONS, OVER 4 05/05/20 15 [id number] SKIN LESIONS, OVER 4 07/14/20 15 Insurance Providers Payer Name Payer Address Payer Phone Subscriber Number Group Number Insured Name Patient Relationship to Insured Coverage Start Date Coverage End Date [facility] [address] [place] [address] [phone] [id number] Bassam Arreola Self - patient is the insured Medical (General) History Medical History History ICD Code asthma Chicken pox Cholesterol Diabetes mellitus High blood pressure Surgical History Surgery Date(Month/Year) Stomach surgery 1970
--- OUTSIDE RECORDS SUMMARY | 2025-08-12 10:37 | XMS_ITS | Clinical Summary ---
Author Organization [address] [place] [address] Address [address] [place] [address] Phone Care Team Providers Care De Alcoholizer Name Role Phone Jerome Zambrano Primary Care Provider [phone] Medications ketoconazole (NIZORAL) 2 % cream Apply topically 1 (one) time each day. 30 g 2 Active Social History Tobacco Use Types Packs/Day Years Used Date Smoking Tobacco: Never Assessed Sex and Gender Information Value Date Recorded Sex Assigned at Not on file Legal Sex Male 10:45 AM EDT Gender Identity Not on file Sexual Orientation Not on file Plan of Treatment Health Maintenance Due Date Last Done Comments Colorectal Cancer Screening: Colonoscopy 1971 Hepatitis B Vaccines (1 of 3 - 19+ 3-dose series) 1990 RSV Immunization Adult Patients (1 - Risk 50-74 years 1-dose series) 2021 Zoster Vaccines (1 of 2) 2021 Depression Screening 09/15/2024 Cholesterol Screening (Lipid Panel) 01/22/2025 HIV Screening 01/22/2025 Hepatitis C Screening 01/22/2025 Social Influencers of Health Screening 01/22/2025 COVID-19 Vaccine (4 - 2024-2 6 season) 2025 12/23/2021, 03/03/2021, 02/10/2021 Influenza Vaccine (#1) 2025 10/24/2023 DTaP,Tdap,and Td Vaccines (2 - Td or Tdap) 03/01/2035 03/01/2025 Pneumococcal Vaccine: 50+ Years Completed 10/24/2023, 08/22/2017 HIB Vaccines Aged Out No longer eligi ble based on patient's age to complete this topic HPV Vaccines Aged Out No longer eligi ble based on patient's age to complete this topic Hepatitis A Vaccines Aged Out No long er eligible based on patient's age to complete this topic IPV Vaccines Aged Out No longer eligi ble based on patient's age to complete this topic MMR Vaccines Aged Out No longer eligi ble based on patient's age to complete this topic Meningococcal ACWY Vaccine Aged Out N o longer eligible based on patient's age to complete this topic Meningococcal B Vaccine Aged Out No l onger eligible based on patient's age to complete this topic RSV Immunization Patients Under 20 months Aged Out No longer eligible b ased on patient's age to complete this topic Varicella Vaccines Aged Out No longer eligible based on patient's age to complete this topic Insurance Care Teams De Alcoholizer Relationship Specialty Start Date End Date Jerome Zambrano PA [address] [place] [phone] PCP - General Physician Hotel Lobby Concierge 02/09/25
[2025-08-12 11:09] VITALS: BP 120/58; PULSE 91; TEMP 37.2; O2SAT 95; BMI 31.0
--- NOTE | 2025-08-12 11:09 | MHC.OFFWIV ---
Intake Vital Signs 08/12/25 11:09 Height 5 ft 8 in Weight 204 lb BMI 31.0 BP 120/58 L Blood Pressure Location Lt brachial Position Sitting Pulse 91 Pulse Source Pulse Oximeter Temp 98.9 F Temp Source Oral Pulse Oximetry (%) 95 Oxygen Delivery Method Room Air Intake Visit Reasons: EP Cough Intake Note: pt presents with chest congestion with on/off productive cough and sore throat, mild headache x4 days Patient Tobacco Use Status: Never used Tobacco Allergies Seasonal Allergies Allergy (Severe, Verified 08/12/25 11:13) Cough Do you need a note to return to daycare/school/sports/work: No HPI HPI Comments History of Present Illness Details History - The patient is a 55 year old individual presenting with a sore throat and cough. - The symptoms began 2 days ago with a sore throat, followed by a barking cough which is sometimes productive. - Today, the patient woke with a headache and feels the symptoms are worsening, noting the onset of body aches and subjective feelings of being hot and cold. - The patient denies any fevers, shortness of breath, trouble breathing, ear pain, or sinus pain. - No medications have been taken for these symptoms. - The cough disturbs sleep, waking the patient 5-6 times a night. [facility] Medical History Foot callus HTN (hypertension) Cervical myelopathy Hyperlipidemia Nephrolithiasis COVID-19 Neuropathy of right lower extremity Proteinuria Low testosterone Asthma, currently dormant Surgical History History of abdominal surgery Family History Mother Alzheimer disease Parkinson disease Mental health disorder Father High blood pressure Diabetes Social History Housing: House Alcohol intake: current Alcohol intake frequency: holidays/special occasions only Alcohol type: beer Patient Tobacco Use Status: Never used Tobacco e-Cigarette/Vaping Use: Never Used Second Hand Smoke Exposure: No service: No Current occupational status: employed 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 - Denies fever. - HEENT: Reports sore throat and headache. - Denies ear pain or sinus pain. - Respiratory: Reports a barking cough, which is sometimes productive. - Denies shortness of breath or trouble breathing. All systems reviewed and are unremarkable except as noted in HPI Physical Exam Exam Exam: Physical Exam General: Cooperative, healthy appearing, comfortable and no acute distress Orientation/consciousness: Patient oriented x3 Limitations: No limitations Head: Normal to inspection Ears: Hearing grossly normal bilaterally, external ears normal, EAC's with erythema but no signs of infection on left, normal on right and TM's normal bilaterally Nose: Normal external nose present, Normal nares present and No nasal discharge present Face and sinus: Normal facial exam and sinuses nontender Mouth: Normal oral and palatal mucosa present and moist mucous membranes Throat: tonsils normal, no exudates, uvula midline, posterior oropharynx erythema Eyes: Appearance normal, both eyes and all related structures Neck: Normal visual inspection, full ROM Respiratory: Clear to auscultation bilaterally. Normal respiratory effort, able to speak in complete sentences, not actively coughing, no respiratory distress, not tachypneic, no tripod positioning and no use of accessory muscles Cardiovascular: Regular rate and rhythm. Normal S1 and S2 Skin: No rashes or lesions noted Neuro: Patient oriented x3 Extremities: Normal to inspection and Yes no clubbing, cyanosis or edema Vital Signs: Last Vital Signs Temp 98.9 F 08/12/25 11:09 Pulse 91 08/12/25 11:09 BP 120/58 L 08/12/25 11:09 Pulse Ox 95 08/12/25 11:09 Oxygen Delivery Method Room Air 08/12/25 11:09 BMI result Body Mass Index 31.0 Assessment & Plan Assessment & Plan (1) Viral URI with cough: Code(s): J06.9 - Acute upper respiratory infection, unspecified Plan: Plan Patient was informed and verbally consented to the use of an ambient scribe for clinic note documentation during this visit. 1. Viral Upper Respiratory Infection - VSS, pt well appearing and PE remarkable for only left EAC erythema, no infection. - The patient's symptoms are consistent with a viral illness, and a rapid strep test was negative. - Antibiotics are not indicated. - A nasal swab was collected to test for influenza, COVID-19, and RSV, with results expected tomorrow. - A prescription for a cough suppressant was sent to the pharmacy to be taken at bedtime to aid sleep. - A prescription for a combination decongestant and antihistamine was sent to the pharmacy for symptomatic relief. - The patient was advised not to take a separate allergy pill while using the prescribed combination medication, as it already contains an antihistamine. He states he isn't taking it right now. - Patient education was provided regarding the expected course of a viral illness and return precautions. - A follow-up call will be made with the lab results. Orders: Orders AMB Rapid Strep Screen Today Z13.9 - Encounter for screening, unspecified SARS-CoV2/FLU/RSV Today R09.89 - Other specified symptoms and signs involving the circulatory and respiratory systems Medications: New benzonatate 200 mg PO BEDTIME PRN 10 caps 0RF cough fexofenadine-pseudoephedrine 180-240 mg ER 1 tab PO QAM PRN 20 tabs 0RF nasal congestion Discontinued loratadine Discontinued Reason: Patient no longer taking 10 mg PO DAILY 90 days 90 tabs 1RF J30.9 - Allergic rhinitis, unspecified Coding Level of Care Code Est Pt Level 3 (25709) Diagnoses Viral URI with cough J06.9
== END 2025-08-12 11:35 | disposition home or self-care (01) ==
PROVIDERS: PCP Physician Assistant; Visit Provider Physician Assistant
DX: J06.9 Acute upper respiratory infection, unspecified (principal)

== ENCOUNTER 2025-08-12 10:36 | Outpatient (REF) | payer OTHER, SELFPAY ==
[2025-08-12 15:01] LABS: Resp Syncy Virus RNA Qual PCR NEGATIVE (Negative); SARS COV2 PCR INHOUSE NEGATIVE (Negative)
== END 2025-08-12 10:37 | disposition home or self-care (01) ==
LOC: HO.LAB 10:36
PROVIDERS: PCP Physician Assistant; Visit Provider Physician Assistant
DX: J06.9 Acute upper respiratory infection, unspecified (principal); R09.89 Other specified symptoms and signs involving the circulatory and respiratory systems; Z13.89 Encounter for screening for other disorder
CPT/HCPCS: 87637

== ENCOUNTER 2025-08-31 08:47 | Outpatient (AMB) | payer OTHER, SELFPAY ==
--- NOTE | 2025-08-31 09:10 | A.OFFPC_ITS ---
Vital Signs 08/31/25 09:11 Height 5 ft 8 in Weight 201 lb 6 oz BMI 30.6 BP 120/66 Blood Pressure Location Lt brachial Position Sitting Pulse 75 Pulse Source Pulse Oximeter Temp 97.3 F Temp Source Temporal Artery Scan Pulse Oximetry (%) 98 Oxygen Delivery Method Room Air Intake Visit Reasons: f/u DMII Intake Note: Patient is here to follow up on DMII. Saw Offbearer Required: No Senior Scientist: Not Required per policy Accompanied by: Self / Same As Patient Allergies Seasonal Allergies Allergy (Severe, Verified 08/31/25 09:11) Cough Medication List - Last Reconciled 08/31/25 by Jayna Cleveland MD albuterol sulfate 90 mcg/actuation (ProAir HFA) 1 inh inhalation QID 30 days atorvastatin 80 mg PO DAILY 90 days blood sugar diagnostic ([employer] Ultra Test strips) Testing Twice per day/ PRN blood-glucose meter ([employer] Ultra2 Meter) Testing once a day as needed dapagliflozin propanediol (Farxiga) 10 mg PO DAILY 90 days dulaglutide (Trulicity) 1.5 mg (0.5 mL) subcut QWEEK 4 weeks fexofenadine-pseudoephedrine 180-240 mg ER 1 tab PO QAM PRN fluticasone propionate 50 mcg/actuation 2 sprays intranasal DAILY 7 days lancets ([employer] Delica Plus Lancet) testing Twice per day lisinopril-hydrochlorothiazide 20-12.5 mg 2 tabs PO DAILY 90 days oxybutynin chloride ER 5 mg PO DAILY 90 days polyethylene glycol 3350 (Miralax) 238 grams PO ONCE 1 day tadalafil 20 mg PO DAILY PRN 5 days tamsulosin (Flomax) 0.4 mg PO DAILY 90 days trazodone 50 mg (1/2 x 100 mg) PO BEDTIME 90 days triamcinolone acetonide 0.5% 1 appl topical DAILY 30 days Tobacco use date assessed: 08/31/25 Dental Screening Dental Screen Date: 10/13/24 HPI HPI Comments History of Present Illness Details Patient is a 55-year-old male with past medical history significant for hypertension, type 2 diabetes, seasonal allergies, family history of coronary artery disease, hyperlipidemia, obesity who is presenting for follow up. Patient reports persistent cough and hoarseness, that began the day after Thanksgiving. He went to an urgent care facility where he received medications, including fexofenadine/pseudoephedrine and benzonatate, which did not provide relief. A viral panel for influenza, COVID, and RSV was conducted and the results were negative. The cough has persisted, described as sometimes dry and sometimes productive, and is worse at night with associated throat itchiness and voice irritation. He denies any fever, chills, facial pain, headache, or heartburn. Regarding his Type 2 Diabetes, the patient's A1c today is 6.9, showing a gradual increase from 6.6 in February and 6.4 in September of the same year. He acknowledges that adhering to his diet is difficult during the holiday season, with increased consumption of sugar and carbohydrates. His weight has fluctuated; increased to 204 lbs in July from 192 lbs, and is currently 201 lbs. He is on Farxiga 10 mg daily, Trulicity 1.5 mg weekly. Had eye exam earlier this year with no signs of retinopathy. Urine microalbumin normal in September 2024. In regards to hypertension, blood pressure controlled on lisinopril- hydrochlorothiazide 20-12.5 mg 2 tabs daily. [facility] Medical History Foot callus HTN (hypertension) Cervical myelopathy Hyperlipidemia Nephrolithiasis COVID-19 Neuropathy of right lower extremity Proteinuria Low testosterone Asthma, currently dormant Surgical History History of abdominal surgery Family History Mother Alzheimer disease Parkinson disease Mental health disorder Father High blood pressure Diabetes Social History Housing: House Alcohol intake: current Alcohol intake frequency: holidays/special occasions only Alcohol type: beer Patient Tobacco Use Status: Never used Tobacco e-Cigarette/Vaping Use: Never Used Second Hand Smoke Exposure: No service: No Current occupational status: employed 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 Current occupational exposures/hazards: No Cognitive needs: No Hearing needs: No Vision needs: No Questionnaire Thrive Questionnaire Date Thrive assessed: 03/01/25 I am a: Patient What is your living situation today?: I have a steady place to live Within the past 12 months, did the food you bought not last and you didn't have the money to get more?: Never true Within the past 12 months, did you worry whether your food would run out before you got money to buy more?: Never true Do you have trouble paying for medicines?: No Do you have trouble getting transportation to medical appointments?: No Do you have trouble paying your heating and electricity bill?: No Do you have trouble taking care of your child, family member or friend?: No Do you have trouble with day-to-day activities such as bathing, preparing meals, shopping, managing finances, etc.?: No Are you currently unemployed and looking for a job?: No Are you interested in more education?: No Please select the resources that you would like help with: None Currently or been in a relationship where the following occur: No concerns reported THRIVE Score: 0 SHAMEKA-7 AMB Questionnaire SHAMEKA-7 Date SHAMEKA - 7 assessed: 10/13/24 Source: Developed by Drs. Linden Womack, Gabrielle Walker, Andrew Hernandez and colleagues, with an educational desmond from [employer]. Physical exam (Primary Care) Vital Signs: Last Vital Signs Temp 97.3 F 08/31/25 09:11 Pulse 75 08/31/25 09:11 BP 120/66 08/31/25 09:11 Pulse Ox 98 08/31/25 09:11 Oxygen Delivery Method Room Air 08/31/25 09:11 General: Well-appearing, alert, oriented ?3, in no acute distress. HEENT: Normocephalic, atraumatic, PERRLA, EOMI, no scleral icterus. External ears normal, tympanic membranes intact bilaterally, no erythema or effusion. Nares patent, normal mucosa pink, no discharge. Mild posterior oropharyngeal erythema. Neck Supple. Cardiovascular: RRR, S1-S2 appreciated, no murmurs, rubs or gallops. Respiratory: Lungs clear to auscultation bilaterally, no wheezes, rales or rhonchi. Abdomen: Soft, nontender, nondistended. Normoactive bowel sounds. BMI result Body Mass Index 30.6 Tobacco/Smoking Status: Tobacco use Status Tobacco use date assessed 08/31/25 08/31/25 09:18 Patient Tobacco Use Status Never used Tobacco 08/31/25 09:18 e-Cigarette/Vaping Use Never Used 08/31/25 09:18 Thrive Assessment: Date of Thrive Assessment Date Thrive assessed 03/01/25 08/31/25 09:18 Currently or been in a relationship where the following occur: No concerns reported Results AMB Hemoglobin A1c AMB Hemoglobin A1c 6.9 % Last Edit by COLLETTE Fernandez on 08/31/25 09:24 Coding Level of Care Code Est Pt Level 4 (59232) Diagnoses Type 2 diabetes mellitus without complication, without long-term current use of insulin E11.9 Diabetes mellitus long-term insulin use: without long term care pharmacist use Diabetes mellitus complication status: without complication Essential hypertension I10 Hypertension type: essential hypertension Mixed hyperlipidemia E78.2 Hyperlipidemia type: mixed hyperlipidemia Cough, unspecified type R05.9 Cough type: unspecified Assessment & Plan Assessment & Plan (1) DMII (diabetes mellitus, type 2): Code(s): E11.9 - Type 2 diabetes mellitus without complications Category: Medical Qualifiers: Diabetes mellitus long-term insulin use: without long term care pharmacist use Diabetes mellitus complication status: without complication Qualified Code(s): E11.9 - Type 2 diabetes mellitus without complications Plan: A1c in clinic today is 6.9, slightly increased from 6.6 in February, but still at goal of less than 7.0. Patient reports that it has been difficult to adhere to strict diet during the holiday season with increase consumption of carbohydrates. Patient counseled and encouraged to adhere to low-carbohydrate diet to continue to improve glycemic control. Patient agreeable and motivated to do so. Will continue current dose of Farxiga and Trulicity. Repeat A1c in 3 months to continue to monitor. (2) HTN (hypertension): Code(s): I10 - Essential (primary) hypertension Category: Medical Qualifiers: Hypertension type: essential hypertension Qualified Code(s): I10 - Essential (primary) hypertension Plan: Blood pressure at goal today in office of less than 130/80. Continue with lisinopril-hydrochlorothiazide (3) Hyperlipidemia: Code(s): E78.5 - Hyperlipidemia, unspecified Category: Medical Qualifiers: Hyperlipidemia type: mixed hyperlipidemia Qualified Code(s): E78.2 - Mixed hyperlipidemia Plan: Patient's most recent lipid panel from February 2025 showing excellent control of his total cholesterol and LDL. Continue on atorvastatin 80 mg He has repeat blood work ordered, pending completion (4) Cough: Code(s): R05.9 - Cough, unspecified Qualifiers: Cough type: unspecified Qualified Code(s): R05.9 - Cough, unspecified Plan: Patient reports persistent cough and hoarseness for about 3 weeks that started after Thanksgiving. Viral panel for influenza, COVID and RSV was negative. Went to urgent care, had fexofenadine/pseudoephedrine and benzonatate, which did not provide relief. Lung auscultation within normal limits. Given persistent symptoms, mild posterior oropharyngeal erythema and history of seasonal allergies, we will start Flonase nasal spray, 2 sprays in each nostril once daily for 7 days. Patient counseled on supportive care including voice rest and stay hydrated. Patient advised to return for re-evaluation if symptoms continues to present do not improve. Orders: Orders AMB Hemoglobin A1c Today E11.9 - Type 2 diabetes mellitus without complications Medications: New fluticasone propionate 50 mcg/actuation administer into each nostril 2 sprays intranasal DAILY 16 grams 0RF 7 days Refilled dapagliflozin propanediol (Farxiga) 10 mg PO DAILY 90 tabs 1RF 90 days E11.9 - Type 2 diabetes mellitus without complications Discontinued clotrimazole 1% Discontinued Reason: Patient no longer taking 1 appl topical BID 30 days 45 grams 3RF B35.3 - Tinea pedis fluticasone propionate 50 mcg/actuation Discontinued Reason: Patient no longer taking 1 spray intranasal BID 30 days 16 grams 3RF E11.9 - Type 2 diabetes mellitus without complications, J45.909 - Unspecified asthma, uncomplicated fexofenadine-pseudoephedrine 180-240 mg ER Discontinued Reason: Patient Completed Course 1 tab PO QAM PRN 20 tabs 0RF nasal congestion
[2025-08-31 09:11] VITALS: BP 120/66; PULSE 75; TEMP 36.3; O2SAT 98; BMI 30.6
--- OUTSIDE RECORDS SUMMARY | 2025-08-31 09:21 | XMS_ITS | Clinical Summary ---
Author Organization [address] [place] [address] [address] [place] [address] Phone Care Team Providers Care Rfid Strategist Name Role Phone Jerome Zambrano Primary Care Provider [phone] Medications ketoconazole (NIZORAL) 2 % cream Apply [...] to complete this topic Insurance Care Teams Rfid Strategist Relationship Specialty Start Date End Date Jerome Zambrano PA [address] [place] [phone] PCP - General Physician Environmental Field Services Technician 02/09/25
== END 2025-08-31 09:38 | disposition home or self-care (01) ==
LOC: HO.HMCH 08:48
PROVIDERS: PCP Physician Assistant; Visit Provider Student in an Organized Health Care Education/Training Program
DX: E11.9 Type 2 diabetes mellitus without complications (principal); I10 Essential (primary) hypertension; E78.2 Mixed hyperlipidemia; R05.9 Cough, unspecified

== ENCOUNTER → 2025-08-31 08:47 | Outpatient (BNVA) | payer OTHER, SELFPAY | PROVIDERS: PCP Physician Assistant; Visit Provider Student in an Organized Health Care Education/Training Program | DX: I10 Essential (primary) hypertension (principal); E11.9 Type 2 diabetes mellitus without complications; E78.2 Mixed hyperlipidemia; R05.9 Cough, unspecified; B35.3 Tinea pedis; Z79.899 Other long term (current) drug therapy | CPT/HCPCS: 83036 ==